=== PATIENT | female | born 1975 | race Caucasian/White ===

== ENCOUNTER 2017-09-18 20:07 | Emergency (ER) | payer MEDICARE, MEDICAID ==
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
--- NOTE | 2017-09-19 08:46 | CT ---
Head CT Technique: Multiple axial sections through the brain were obtained. Intravenous contrast was not utilized. Comparison: No prior intracranial imaging is available. Findings: Soft tissue swelling/hematoma identified within the right posterior scalp. Ventricles along with basal cisterns and sulci over the convexities are within normal limits for the patient's age. No abnormal parenchymal densities are seen. No evidence of intracranial hemorrhage. No midline shift or mass effect is seen. Small retention cyst is noted within the left maxillary sinus measuring 1.0 cm in size which is incidental. No acute calvarial abnormality is seen. Impression: 1. Sinus finding as described above which is felt to be incidental. 2. Soft tissue swelling/hematoma within the right posterior scalp. 3. No acute intracranial abnormality is identified. Diagnostic code #2 I agree with preliminary report issued by [facility] ([facility] preliminary report dictated on 09/18/17, 10:52 PM Central Time)
--- NOTE | 2017-09-19 08:46 | CT ---
CT cervical spine Technique: Multiple axial sections were obtained from above C1 inferiorly to the bottom of T2. Reconstructed sagittal and coronal images were reviewed. Comparison: No previous cervical spine imaging. Findings: Visualized mastoid sinuses and middle ear cavities are clear. Posterior skull base is intact. Vertebral bodies and posterior arches are intact with no fracture being seen. Vertebral body heights and disc spaces are maintained. No bony central or bony neural foraminal stenosis is seen. Minimal degenerative spurring within the uncovertebral joints is seen which is most prominent at C5-C6 on the left side. Impression: 1. Minimal degenerative change. 2. Nothing acute is identified on CT study of the cervical spine. Diagnostic code #2 I agree with preliminary report issued by [facility] ([facility] preliminary report dictated on 09/18/17, 10:48 PMCentral Time)
== END 2017-09-18 22:42 | disposition home or self-care (01) ==
LOC: JD.ED 20:07
DX: S00.03XA Contusion of scalp, initial encounter (principal); E11.22 Type 2 diabetes mellitus with diabetic chronic kidney disease; N18.1 Chronic kidney disease, stage 1; E11.40 Type 2 diabetes mellitus with diabetic neuropathy, unspecified; E78.00 Pure hypercholesterolemia, unspecified; K21.9 Gastro-esophageal reflux disease without esophagitis; F17.210 Nicotine dependence, cigarettes, uncomplicated; Z79.4 Long term (current) use of insulin; Z79.899 Other long term (current) drug therapy; W01.0XXA Fall on same level from slipping, tripping and stumbling without subsequent striking against object, initial encounter; Y92.481 Parking lot as the place of occurrence of the external cause
CPT/HCPCS: 70450; 70450-26; 72125; 72125-26; 99284; 99284-25

== ENCOUNTER 2018-01-01 20:35 | Emergency (ER) | payer MEDICARE, MEDICAID ==
--- NOTE | 2018-01-01 21:09 | EDM.PDOC ---
ED HPI GENERAL MEDICAL PROBLEM - General Chief Complaint: ENT Problem Stated Complaint: DRY SOCKET Time Seen by Provider: 01/01/18 21:09 Source of Information: Reports: Patient History Limitations: Reports: No Limitations - History of Present Illness INITIAL COMMENTS - FREE TEXT/NARRATIVE: Patient is a 42-year-old female with a history of extraction of multiple teeth. She developed dry socketto #30 tooth. She was evaluated by her oral surgeon approximately one week ago and started on another round of antibiotic of unknown name. She has received hydrocodone with ibuprofen. She ran out of this medication a few days ago. Pain is isolated to the #30 tooth. She developed a small knot along the outerborder of the gumline. She has pain from the chin along the mandibular branch of the facial nerve. She has a history of factor V Leiden and is concerned about a blood clot. Patient recently moved here from [facility]. She is supposed to be on xarelto and is not for a multitude of excuses. She sees Dr. Mathur at the [facility] in [place]. Right Tooth/Teeth Pain Score (Numeric/FACES): 6 - Related Data Allergies Allergy/AdvReac Type Severity Reaction Status Date / Time atorvastatin [From Lipitor] Allergy Rash Verified 09/18/17 20:24 pseudoephedrine Allergy Rash Verified 09/18/17 20:23 [From Sudafed] komboglyze Allergy Vomiting Uncoded 09/18/17 20:24 Home Meds: Home Meds Dexlansoprazole [Dexilant] 60 mg PO BID 09/18/17 [History] Insulin Glarg,Human.Rec.Analog [LantUS Solostar] 45 units INJECT BEDTIME [History] Novalog 16 units INJECT TID 09/18/17 [History] Past Medical History Cardiovascular History: Reports: High Cholesterol Respiratory History: Reports: PE Gastrointestinal History: Reports: GERD Other Gastrointestinal History: Cheng esophagus Genitourinary History: Reports: Chronic Renal Insuffiency Neurological History: Reports: Migraines Psychiatric History: Reports: Bipolar Other Psychiatric History: manic depression Endocrine/Metabolic History: Reports: Diabetes, Type II, Obesity/BMI 30+ Hematologic History: Reports: Other (See Below) Other Hematologic History: factor 5 liden - Past Surgical History HEENT Surgical History: Reports: Oral Surgery, Tonsillectomy, Other (See Below) Other HEENT Surgeries/Procedures: 3 teeth removed and 3 teeth repaired GI Surgical History: Reports: Cholecystectomy, Hernia, Abdominal Female Surgical History: Reports: Section, Cervical Cryotherapy, Hysterectomy Musculoskeletal Surgical History: Reports: Shoulder Surgery, Other (See Below) Social & Family History - Tobacco Use Smoking Status *Q: Former Smoker Years of Tobacco use: 28 Packs/Tins Daily: 0.1 Used Tobacco, but Quit: Yes Month/Year Tobacco Last Used: December 19, 2017 - Caffeine Use Caffeine Use: Reports: Coffee - Recreational Drug Use Recreational Drug Use: No Drug Use in Last 12 Months: No Recreational Drug Type: Reports: Cocaine (last 2008) ED ROS ENT - Review of Systems Review Of Systems: ROS reveals no pertinent complaints other than HPI. Constitutional: Denies: Fever, Chills, Decreased Appetite HEENT: Denies: Ear Pain, Sinus Problem, Throat Pain Musculoskeletal: Denies: Neck Pain Skin: Denies: Erythema Neurological: Reports: No Symptoms ED EXAM, ENT - Physical Exam Exam: See Below Exam Limited By: No Limitations General Appearance: Alert, WD/WN, No Apparent Distress Ears: Hearing Grossly Normal Nose: Normal Inspection Mouth/Throat: Normal Inspection, Dental Pain, Other (Dry second noted #30 tooth. With palpation of the lateral aspect at the gumline small knot present. Minimal pain on palpation. No fluctuance. This is localized with no extension.) . No: Drooling, Dry Mucous Membrane, Trismus Head: Normocephalic Neck: Normal Inspection, Supple, Non-Tender, Full Range of Motion. No: Lymphadenopathy (L), Lymphadenopathy (R) Respiratory/Chest: No Respiratory Distress, Lungs Clear Cardiovascular: Normal Peripheral Pulses, Regular Rate, Rhythm Neurological: Alert, Oriented, CN II-XII Intact, Normal Cognition Psychiatric: Normal Affect, Normal Mood Course - Vital Signs Last Recorded V/S: Last Vital Signs Temp 97.2 F 01/01/18 20:44 Pulse 115 H 01/01/18 20:44 Resp 18 01/01/18 20:44 BP 153/98 H 01/01/18 20:44 Pulse Ox 99 01/01/18 20:44 - Re-Assessments/Exams Free Text/Narrative Re-Assessment/Exam: Patient has a dry socket tooth #30 tooth. Appears to be responding well to antibiotics. Patient will be discharged home with no further narcotics. She is in no acute distress. Discharge instructions as documented. Departure - Departure Time of Disposition: 21:36 Disposition: Home, Self-Care 01 Condition: Good Clinical Impression: Dry tooth socket - Discharge Information Instructions: Dental Dry Socket, [id number] Referrals: Josie Mathur MD [Primary Care Provider] - Forms: ED Department Discharge Additional Instructions: Continue taking the antibiotic as prescribed. Utilize Aleve one tablet twice a day for pain may also take Tylenol 650 mg every 6 hours for pain as well. Refrain from chewing on the affected side. Continue to follow the instructions by your oral surgeon. Follow-up with oral surgeon this coming week for reevaluation. Return to the ED if you develop any new or worsening symptoms.
== END 2018-01-01 21:45 | disposition home or self-care (01) ==
LOC: JD.ED 20:35
DX: M27.3 Alveolitis of jaws (principal); E78.00 Pure hypercholesterolemia, unspecified; E11.22 Type 2 diabetes mellitus with diabetic chronic kidney disease; N18.9 Chronic kidney disease, unspecified; Z88.8 Allergy status to other drugs, medicaments and biological substances; Z79.899 Other long term (current) drug therapy; Z79.4 Long term (current) use of insulin; Z87.891 Personal history of nicotine dependence
CPT/HCPCS: 99283

== ENCOUNTER 2018-03-15 05:28 | Emergency (ER) | payer MEDICARE, MEDICAID ==
[2018-03-15] MEDS ORDERED: cefTRIAXone 1 GM in Sodium Chloride 0.9% 100 ML IV ONE (05:51)
--- NOTE | 2018-03-15 05:55 | EDM.PDOC ---
ED HPI GENERAL MEDICAL PROBLEM - General Chief Complaint: Headache Stated Complaint: headache Time Seen by Provider: 03/15/18 05:39 Source of Information: Reports: Patient History Limitations: Reports: No Limitations - History of Present Illness INITIAL COMMENTS - FREE TEXT/NARRATIVE: This is a 42-year-old female. Onset of a headache earlier this evening. He describes it as throbbing and a pounding in the front of her head and face and eyes and top of her head. She says she used to have headaches like this once every month but that she hasn't been having very many in the last few months until this one started. She has been nauseated but no vomiting. He also complains of having some lymph nodes behind her ear and underneath her left axilla that are very painful. She comes to the ER for evaluation. She denies any fever or chills. Head Pain Score (Numeric/FACES): 8 - Related Data Allergies Allergy/AdvReac Type Severity Reaction Status Date / Time atorvastatin [From Lipitor] Allergy Rash Verified 03/15/18 05:38 pseudoephedrine Allergy Rash Verified 03/15/18 05:38 [From Sudafed] komboglyze Allergy Vomiting Uncoded 09/18/17 20:24 Home Meds: Home Meds Dexlansoprazole [Dexilant] 60 mg PO BID 09/18/17 [History] Insulin Glarg,Human.Rec.Analog [LantUS Solostar] 45 units INJECT BEDTIME [History] Cephalexin 500 mg PO TID #21 capsule 03/15/18 [Rx] Insulin Aspart [NovoLOG] 0 units SQ DAILY 03/15/18 [History] Past Medical History Cardiovascular History: Reports: High Cholesterol Respiratory History: Reports: PE Gastrointestinal History: Reports: GERD Other Gastrointestinal History: Cheng esophagus Genitourinary History: Reports: Chronic Renal Insuffiency Neurological History: Reports: Migraines Psychiatric History: Reports: Bipolar Other Psychiatric History: manic depression Endocrine/Metabolic History: Reports: Diabetes, Type II, Obesity/BMI 30+ Hematologic History: Reports: Other (See Below) Other Hematologic History: factor 5 liden - Past Surgical History HEENT Surgical History: Reports: Oral Surgery, Tonsillectomy, Other (See Below) Other HEENT Surgeries/Procedures: 3 teeth removed and 3 teeth repaired GI Surgical History: Reports: Cholecystectomy, Hernia, Abdominal Female Surgical History: Reports: Section, Cervical Cryotherapy, Hysterectomy Musculoskeletal Surgical History: Reports: Shoulder Surgery, Other (See Below) Social & Family History - Tobacco Use Smoking Status *Q: Unknown Ever Smoked - Caffeine Use Caffeine Use: Reports: Coffee ED ROS GENERAL - Review of Systems Review Of Systems: See Below Constitutional: Denies: Fever, Chills HEENT: Reports: No Symptoms Respiratory: Reports: No Symptoms Cardiovascular: Reports: No Symptoms Endocrine: Reports: No Symptoms GI/Abdominal: Reports: No Symptoms : Reports: No Symptoms Musculoskeletal: Reports: No Symptoms Skin: Reports: Other (Left adnexal inflammation and swelling) Neurological: Reports: Headache Psychiatric: Reports: No Symptoms Hematologic/Lymphatic: Reports: No Symptoms - Physical Exam Exam: See Below Exam Limited By: No Limitations General Appearance: Alert, WD/WN, Mild Distress Eye Exam: Bilateral Eye: Normal Inspection Ears: Normal External Exam, Normal Canal, Normal TMs Nose: Normal Inspection Throat/Mouth: Normal Inspection, Normal Lips, Normal Voice, No Airway Compromise Head Exam: Normocephalic, Other (Hospital some mild lymphadenopathy post auricular on the right side) Neck: Supple, Non-Tender Respiratory/Chest: No Respiratory Distress, Lungs Clear, Normal Breath Sounds Cardiovascular: Regular Rate, Rhythm, No Murmur GI/Abdominal: Soft Neuro Exam (Abbreviated): Alert, Oriented Back Exam: Full Range of Motion Extremities: Normal Inspection, Normal Range of Motion, Other (In the left axilla she has a very large lymph node noted swollen and very tender and there is some surrounding erythema in that region the lymph node is probably a good 3 cm in diameter, there is no fluctuance there to open up for an abscess is just very firm) Psychiatric: Normal Affect, Normal Mood Skin Exam: Warm, Dry Course - Vital Signs Last Recorded V/S: Last Vital Signs Temp 98.5 F 03/15/18 05:35 Pulse 85 03/15/18 05:35 Resp 18 03/15/18 05:35 BP 185/112 H 03/15/18 05:35 Pulse Ox 100 03/15/18 05:35 - Orders/Labs/Meds Orders: Active Orders 24 hr Category Date Time Status Sodium Chloride 0.9% [Normal Saline] 1,000 ml Med 03/15/18 06:00 Active IV ASDIRECTED Medication Orders Sodium Chloride (Normal Saline) 1,000 mls @ 1,000 mls/hr IV ASDIRECTED KARIE Last Admin: 03/15/18 06:06 Dose: 1,000 mls/hr Meds: Medications Generic Name Dose Route Start Last Admin Trade Name Aspen PRN Reason Stop Dose Admin Sodium Chloride 1,000 mls @ 1,000 mls/hr 03/15/18 06:00 03/15/18 06:06 Normal Saline IV 1,000 mls/hr ASDIRECTED KARIE Administration Discontinued Medications Generic Name Dose Route Start Last Admin Trade Name Aspen PRN Reason Stop Dose Admin Diphenhydramine HCl 25 mg 03/15/18 06:07 03/15/18 06:14 Benadryl IVPUSH 03/15/18 06:08 25 mg ONETIME ONE Administration Ceftriaxone Sodium 1 gm/ 100 mls @ 200 mls/hr 03/15/18 05:51 03/15/18 05:59 Sodium Chloride IV 03/15/18 06:20 200 mls/hr ONETIME ONE Administration Ketorolac Tromethamine 30 mg 03/15/18 06:07 03/15/18 06:13 Toradol IVPUSH 03/15/18 06:08 30 mg ONETIME ONE Administration Lorazepam 0.5 mg 03/15/18 06:08 03/15/18 06:16 Ativan IVPUSH 03/15/18 06:09 0.5 mg ONETIME ONE Administration Ondansetron HCl 4 mg 03/15/18 06:07 03/15/18 06:13 Zofran IVPUSH 03/15/18 06:08 4 mg ONETIME ONE Administration - Re-Assessments/Exams Free Text/Narrative Re-Assessment/Exam: 03/15/18 07:04 The liter of fluids and the medications the patient's headache essentially resolved. I did give her a gram of Rocephin IV for her severe lymphadenitis of her left axilla. She is going to follow-up with her family doctor this week for recheck and have them recheck her left axilla as well. Departure - Departure Time of Disposition: 07:05 Disposition: Home, Self-Care 01 Condition: Fair Clinical Impression: Axillary lymphadenitis Headache Qualifiers: Headache type: other headache syndrome Qualified Code(s): G44.89 - Other headache syndrome - Discharge Information Prescriptions: Cephalexin 500 mg PO TID #21 capsule Referrals: Josie Mathur MD [Primary Care Provider] - Forms: ED Department Discharge Additional Instructions: Use warm compresses to the axilla 2-3 times a day, start taking your antibiotics tomorrow morning but get them today the IV antibiotic she got in the ER this morning will last for 24 hours, rest and sleep as much as possible so you headache doesn't come back and drink lots of water, follow-up with your physician as scheduled this week and have them recheck your left axilla, return to the ER if needed - My Orders Last 24 Hours: My Active Orders 03/15/18 06:00 Sodium Chloride 0.9% [Normal Saline] 1,000 ml IV ASDIRECTED - Assessment/Plan Last 24 Hours: My Active Orders 03/15/18 06:00 Sodium Chloride 0.9% [Normal Saline] 1,000 ml IV ASDIRECTED
[2018-03-15] MEDS ORDERED: Sodium Chloride 0.9% 1,000 ML IV SCH (06:00)
[2018-03-15] MEDS ORDERED: diphenhydrAMINE 50 MG/ML SDV IVPUSH ONE (06:07)
[2018-03-15] MEDS ORDERED: Ondansetron 4 MG/2 ML SDV IVPUSH ONE (06:07)
[2018-03-15] MEDS ORDERED: Ketorolac 30 MG/ML SDV IVPUSH ONE (06:07)
[2018-03-15] MEDS ORDERED: LORazepam 2 MG/ML SDV IVPUSH ONE (06:08)
== END 2018-03-15 07:23 | disposition home or self-care (01) ==
LOC: JD.ED 05:28
DX: G44.89 Other headache syndrome (principal); I88.9 Nonspecific lymphadenitis, unspecified; N18.9 Chronic kidney disease, unspecified; E11.22 Type 2 diabetes mellitus with diabetic chronic kidney disease; E66.9 Obesity, unspecified; Z88.8 Allergy status to other drugs, medicaments and biological substances; Z79.4 Long term (current) use of insulin
CPT/HCPCS: 96361; 96374; 96375; 99284; J0696; J1200; J1885; J2060; J2405; J7030; J7040

== ENCOUNTER 2018-05-05 19:56 | Emergency (ER) | payer MEDICARE, MEDICAID ==
--- NOTE | 2018-05-05 22:58 | EDM.PDOC ---
ED HPI GENERAL MEDICAL PROBLEM - General Chief Complaint: General Stated Complaint: MERSA INFECTION Time Seen by Provider: 05/05/18 20:21 Source of Information: Reports: Patient, Family (Daughter) History Limitations: Reports: No Limitations - History of Present Illness INITIAL COMMENTS - FREE TEXT/NARRATIVE: The patient states that she has had a fever on and off since 05/02/2018 , with a Tmax of 103 on 05/03/2018. She also complains of a painful lesion inside her left nostril for the past week, getting worse, and a painful lump in her right axilla for the past 2 days. The patient states that she has a history of MRSA. When asked about this, she states that she acquired an intra- abdominal MRSA infection when she had a hysterectomy. She states that she has had various skin infections since then, that she has presumed were due to MRSA, but she acknowledges that no cultures were taken. The patient presumes that any skin infection must be due to MRSA. The patient has a history of diabetes, and a continuous glucose monitor was recently placed. She states that her blood glucoses have been in the range of 106 to 300. The patient's PCP is Dr. Mathur. 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 nose Pain Score (Numeric/FACES): 7 - Related Data Allergies Allergy/AdvReac Type Severity Reaction Status Date / Time atorvastatin [From Lipitor] Allergy Rash Verified 05/05/18 20:18 pseudoephedrine Allergy Rash Verified 05/05/18 20:18 [From Sudafed] komboglyze Allergy Vomiting Uncoded 05/05/18 20:18 Home Meds: Home Meds Dexlansoprazole [Dexilant] 60 mg PO BID 09/18/17 [History] Insulin Glarg,Human.Rec.Analog [LantUS Solostar] 45 units INJECT BEDTIME [History] Insulin Aspart [NovoLOG] 0 units SQ DAILY 03/15/18 [History] Mupirocin Oint [Bactroban Oint] 1 applic TOP BID #1 tube 05/05/18 [Rx] Past Medical History Cardiovascular History: Reports: High Cholesterol (untreated) Respiratory History: Reports: PE (not on an anticoagulant) Gastrointestinal History: Reports: GERD (with Cheng esophagus) Genitourinary History: Reports: Chronic Renal Insuffiency (2 diabetes) Psychiatric History: Reports: Bipolar Other Psychiatric History: manic depression Endocrine/Metabolic History: Reports: Diabetes, Type II, Obesity/BMI 30+ Hematologic History: Reports: Bleeding Disorder (Factor V Leiden deficiency) - Infectious Disease History Infectious Disease History: Reports: Chicken Pox, MRSA - Past Surgical History HEENT Surgical History: Reports: Oral Surgery (Dental surgery), Tonsillectomy GI Surgical History: Reports: Cholecystectomy, Hernia Repair/Other (umbilical herniorrhaphy x 2) Female Surgical History: Reports: Section (x 2), Cervical Cryotherapy, Hysterectomy Musculoskeletal Surgical History: Reports: Shoulder Surgery (right rotator cuff repair, arthroscopic), Other (See Below) (Right Achilles tendon repair) Social & Family History - Family History Family Medical History: Noncontributory - Tobacco Use Smoking Status *Q: Current Every Day Smoker Years of Tobacco use: 28 Packs/Tins Daily: 0.5 Packs/Tins Daily Comment: Down from 2 ppd - Caffeine Use Caffeine Use: Reports: Coffee - Alcohol Use Alcohol Use History: Yes Alcohol Use Frequency: Rarely - Recreational Drug Use Recreational Drug Use: Yes Drug Use in Last 12 Months: No Recreational Drug Type: Reports: Cocaine (none 2008) - Living Situation & Occupation Living situation: Reports: Single, with Family (Daughter) 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 ED EXAM, GENERAL - Physical Exam Exam: See Below Exam Limited By: No Limitations General Appearance: Alert, WD/WN, No Apparent Distress Eye Exam: Bilateral Eye: EOMI, Normal Inspection Ears: Normal External Exam, Normal Canal, Hearing Grossly Normal, Normal TMs Nose: No Blood, Other (Small folliculitis noted in the left nostril) Throat/Mouth: Normal Inspection, Normal Lips, Normal Teeth, Normal Gums, Normal Oropharynx, Normal Voice, No Airway Compromise Head: Atraumatic, Normocephalic Extremities: Other (Small area of folliculitis noted in the right axilla. No associated cellulitis. No axillary lymphadenopathy.) Course - Vital Signs Last Recorded V/S: Last Vital Signs Temp 36.6 C 05/05/18 20:11 Pulse 93 05/05/18 20:11 Resp 18 05/05/18 20:11 BP 150/99 H 05/05/18 20:11 Pulse Ox 100 05/05/18 20:11 - Orders/Labs/Meds Orders: Active Orders 24 hr Category Date Time Status METH-RESIST S.AUR,MRSA BY PCR [MOLEC] Stat Lab 05/05/18 21:10 Ordered Labs: Laboratory Tests 05/05/18 Range/Units 21:10 MRSA (PCR) Negative Meds: Medications Discontinued Medications Generic Name Dose Route Start Last Admin Trade Name Aspen PRN Reason Stop Dose Admin Mupirocin 1 gm 05/05/18 23:00 05/05/18 23:10 Bactroban Oint TOP 05/05/18 23:01 1 gm ONETIME STA Administration - Re-Assessments/Exams Free Text/Narrative Re-Assessment/Exam: 05/05/18 22:51 The patient's MRSA screen by PCR has returned as negative. Clinically, the patient has folliculitis of both her left nostril and her right axilla. I am going to recommend topical mupirocin to both areas, and recommend that she avoid shaving her right axilla until resolution. Departure - Departure Time of Disposition: 22:58 Disposition: Home, Self-Care 01 Condition: Good Clinical Impression: Folliculitis - Discharge Information *PRESCRIPTION DRUG MONITORING PROGRAM REVIEWED*: Not Applicable *COPY OF PRESCRIPTION DRUG MONITORING REPORT IN PATIENT YARELIS: Not Applicable Prescriptions: Mupirocin Oint [Bactroban Oint] 1 applic TOP BID #1 tube Instructions: Folliculitis Referrals: oJsie Mathur MD [Primary Care Provider] - Forms: ED Department Discharge Additional Instructions: You were seen in the emergency room for recurrent fevers, and an infection in your left nostril and right arm. Workup in the ER included a MRSA screen, which returned negative. Based on your history and physical examination, you're suffering from folliculitis in your left nostril and right armpit. You have been started on the topical antibiotic Bactroban (mupirocen). A prescription for Bactroban has been sent to the [facility], [address] [place]. Apply a thin smear of Bactroban to the inside of your left nostril and to your right armpit, twice a day, until resolution of your symptoms. In addition, we recommend that you do not shave your right armpit until resolution of your symptoms. Follow-up with your PCP, Dr. Josie Mathur, as needed. If any other problems, please do not hesitate to return to the ER. - My Orders Last 24 Hours: My Active Orders 05/05/18 21:10 METH-RESIST S.AUR,MRSA BY PCR [MOLEC] Stat - Assessment/Plan Last 24 Hours: My Active Orders 05/05/18 21:10 METH-RESIST S.AUR,MRSA BY PCR [MOLEC] Stat
[2018-05-05] MEDS ORDERED: Mupirocin Oint 22 GM Tube TOP STA (23:00)
== END 2018-05-05 23:26 | disposition home or self-care (01) ==
LOC: JD.ED 19:56
DX: L73.9 Follicular disorder, unspecified (principal); E11.22 Type 2 diabetes mellitus with diabetic chronic kidney disease; N18.9 Chronic kidney disease, unspecified; F17.210 Nicotine dependence, cigarettes, uncomplicated; Z88.8 Allergy status to other drugs, medicaments and biological substances; Z79.4 Long term (current) use of insulin
CPT/HCPCS: 87641; 99283; A9270

== ENCOUNTER 2018-06-15 08:40 | Emergency (ER) | payer MEDICARE, MEDICAID ==
[2018-06-15] MEDS ORDERED: Sodium Chloride 0.9% 10 ML Syringe FLUSH PRN (09:16)
[2018-06-15] MEDS ORDERED: Sodium Chloride 0.9% 1,000 ML IV STA (09:16)
[2018-06-15] MEDS ORDERED: Ondansetron 4 MG/2 ML SDV IVPUSH ONE (09:16)
--- NOTE | 2018-06-15 11:45 | EDM.PDOC ---
ED HPI GENERAL MEDICAL PROBLEM - General Chief Complaint: Gastrointestinal Problem Stated Complaint: NAUSEA/VOMITING/POSS EYE INFECTION Time Seen by Provider: 06/15/18 08:54 Source of Information: Reports: Patient History Limitations: Reports: No Limitations - History of Present Illness INITIAL COMMENTS - FREE TEXT/NARRATIVE: The patient presents with nausea and diarrhea. This stared over 2 weeks ago. She was in [place] for her grandmother's and after that she did get the diarrhea. She did not eat any bad food as far as she knows. She was not around anyone who was sick like this. She was [place] when she was in [place]. She has no fever, chills, cough, chest pain, shortness of breath, or dysuria. She will get cramping before the diarrhea. About every time she eats she will get some diarrhea later. She also has red eyes with drainage and matting. Onset: Gradual Duration: Week(s): (2) Location: Reports: Abdomen Quality: Reports: Other (Cramping) Severity: Mild Improves with: Reports: None Worsens with: Reports: None Associated Symptoms: Reports: No Other Symptoms - Related Data Allergies Allergy/AdvReac Type Severity Reaction Status Date / Time atorvastatin [From Lipitor] Allergy Rash Verified 06/15/18 08:51 pseudoephedrine Allergy Rash Verified 06/15/18 08:51 [From Sudafed] komboglyze Allergy Vomiting Uncoded 06/15/18 08:51 Home Meds: Home Meds Dexlansoprazole [Dexilant] 60 mg PO BID 09/18/17 [History] Insulin Glarg,Human.Rec.Analog [LantUS Solostar] 25 units INJECT BEDTIME [History] Insulin Aspart [NovoLOG] 0 units SQ TID 03/15/18 [History] Ciprofloxacin [Ciprofloxacin 0.3% Ophth Soln] 1 drop EYEBOTH Q4H #10 ml [Rx] Ondansetron [Zofran ODT] 4 mg PO Q6H PRN #20 tab.dis 06/15/18 [Rx] metroNIDAZOLE [Flagyl] 500 mg PO Q8H #15 tab 06/15/18 [Rx] Past Medical History Cardiovascular History: Reports: High Cholesterol Respiratory History: Reports: PE Gastrointestinal History: Reports: GERD Other Gastrointestinal History: Cheng esophagus Genitourinary History: Reports: Chronic Renal Insuffiency Neurological History: Reports: Migraines Psychiatric History: Reports: Bipolar Other Psychiatric History: manic depression Endocrine/Metabolic History: Reports: Diabetes, Type II, Obesity/BMI 30+ Hematologic History: Reports: Bleeding Disorder Other Hematologic History: factor 5 liden - Infectious Disease History Infectious Disease History: Reports: Chicken Pox, MRSA - Past Surgical History HEENT Surgical History: Reports: Oral Surgery, Tonsillectomy GI Surgical History: Reports: Cholecystectomy, Hernia Repair/Other Female Surgical History: Reports: Section, Cervical Cryotherapy, Hysterectomy Musculoskeletal Surgical History: Reports: Shoulder Surgery, Other (See Below) Social & Family History - Family History Family Medical History: Noncontributory - Tobacco Use Smoking Status *Q: Never Smoker - Caffeine Use Caffeine Use: Reports: Coffee - Recreational Drug Use Recreational Drug Use: No - Living Situation & Occupation Living situation: Reports: Single, with Family (Daughter) 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 Denies: Vomiting : Reports: No Symptoms ED EXAM, GI/ABD - Physical Exam Exam: See Below Exam Limited By: No Limitations General Appearance: Alert, No Apparent Distress Eyes: Bilateral: Erythema (Mild with mild drainage) Ears: Normal External Exam Nose: Normal Inspection Head: Atraumatic, Normocephalic Neck: Normal Inspection Respiratory/Chest: No Respiratory Distress, Lungs Clear, Normal Breath Sounds Cardiovascular: Regular Rate, Rhythm, No Edema, No Murmur GI/Abdominal Exam: Soft, Non-Tender, No Organomegaly, No Mass Back Exam: Normal Inspection Course - Vital Signs Last Recorded V/S: Last Vital Signs Temp 97.7 F 06/15/18 08:48 Pulse 89 06/15/18 08:48 Resp 16 06/15/18 08:48 BP 156/97 H 06/15/18 08:48 Pulse Ox 100 06/15/18 08:48 - Orders/Labs/Meds Orders: Active Orders 24 hr Category Date Time Status Peripheral IV Care [RC] . DIRECTED Care 06/15/18 09:17 Active Sodium Chloride 0.9% [Saline Flush] Med 06/15/18 09:16 Active 10 ml FLUSH ASDIRECTED PRN ED Antiemetic Medication Reflex [OM.PC] Stat Oth 06/15/18 09:17 Ordered Peripheral IV Insertion Adult [OM.PC] Stat Ot 06/15/18 09:16 Ordered Medication Orders Sodium Chloride (Saline Flush) 10 ml FLUSH ASDIRECTED PRN PRN Reason: Keep Vein Open Last Admin: 06/15/18 09:31 Dose: 10 ml Labs: Laboratory Tests 06/15/18 06/15/18 Range/Units 09:25 09:25 WBC 8.94 (3.98-10.04) K/mm3 RBC 4.83 (3.98-5.22) M/mm3 Hgb 13.1 (11.2-15.7) gm/L Hct 38.2 (34.1-44.9) % MCV 79.1 L (79.4-94.8) fl MCH 27.1 (25.6-32.2) pg MCHC 34.3 (32.2-35.5) g/dl RDW Std Deviation 39.4 (36.4-46.3) fL Plt Count 274 (182-369) K/mm3 MPV 9.9 (9.4-12.3) fl Neut % (Auto) 56.4 (34.0-71.1) % Lymph % (Auto) 36.4 (19.3-51.7) % Benzie % (Auto) 4.4 L (4.7-12.5) % Eos % (Auto) 2.1 (0.7-5.8) Baso % (Auto) 0.6 (0.1-1.2) % Neut # (Auto) 5.05 (1.56-6.13) K/mm3 Lymph # (Auto) 3.25 (1.18-3.74) K/mm3 Benzie # (Auto) 0.39 H (0.24-0.36) K/mm3 Eos # (Auto) 0.19 (0.04-0.36) K/mm3 Baso # (Auto) 0.05 (0.01-0.08) K/mm3 Sodium 138 (136-145) mEq/L Potassium 4.0 (3.5-5.1) mEq/L Chloride 105 (98-107) mEq/L Carbon Dioxide 23 (21-32) mEq/L Anion Gap 14.0 (5-15) BUN 12 (7-18) mg/dL Creatinine 0.8 (0.55-1.02) mg/dL Est Cr Clr Drug Dosing 94.76 mL/min Estimated GFR (MDRD) > 60 (>60) mL/min BUN/Creatinine Ratio 15.0 (14-18) Glucose 217 H (74-106) mg/dL Calcium 8.4 L (8.5-10.1) mg/dL Total Bilirubin 0.4 (0.2-1.0) mg/dL AST 17 (15-37) U/L ALT 14 (14-59) U/L Alkaline Phosphatase 108 (46-116) U/L Total Protein 6.6 (6.4-8.2) g/dl Albumin 3.0 L (3.4-5.0) g/dl Globulin 3.6 gm/dL Albumin/Globulin Ratio 0.8 L (1-2) Lipase 127 (73-393) U/L Meds: Medications Generic Name Dose Route Start Last Admin Trade Name Freq PRN Reason Stop Dose Admin Sodium Chloride 10 ml 06/15/18 09:16 06/15/18 09:31 Saline Flush FLUSH 10 ml ASDIRECTED PRN Administration Keep Vein Open Discontinued Medications Generic Name Dose Route Start Last Admin Trade Name Freq PRN Reason Stop Dose Admin Sodium Chloride 1,000 mls @ 1,000 mls/hr 06/15/18 09:16 06/15/18 09:30 Normal Saline IV 06/15/18 10:15 1,000 mls/hr .BOLUS STA Administration Ondansetron HCl 4 mg 06/15/18 09:16 06/15/18 09:31 Zofran IVPUSH 06/15/18 09:17 4 mg ONETIME ONE Administration - Re-Assessments/Exams Free Text/Narrative Re-Assessment/Exam: 06/15/18 11:53 I ordered an IV NS 1L bolus, zofran 4mg IV, labs and UA. Her CBC looks good. Her glucose was 217. Her lipase was normal. She could not urinate or have a bowel movement. I will send specimen cups home. I will also get her on some flagyl, zofran and cipro for the conjunctivitis she is having. Departure - Departure Time of Disposition: 11:40 Disposition: Home, Self-Care 01 Condition: Good Clinical Impression: Nausea Diarrhea Qualifiers: Diarrhea type: infectious Qualified Code(s): A09 - Infectious gastroenteritis and colitis, unspecified Conjunctivitis Qualifiers: Conjunctivitis type: acute Acute conjunctivitis type: bacterial Laterality: bilateral Qualified Code(s): H10.33 - Unspecified acute conjunctivitis, bilateral - Discharge Information *PRESCRIPTION DRUG MONITORING PROGRAM REVIEWED*: No *COPY OF PRESCRIPTION DRUG MONITORING REPORT IN PATIENT YARELIS: No Prescriptions: Ciprofloxacin [Ciprofloxacin 0.3% Ophth Soln] 1 drop EYEBOTH Q4H #10 ml metroNIDAZOLE [Flagyl] 500 mg PO Q8H #15 tab Ondansetron [Zofran ODT] 4 mg PO Q6H PRN #20 tab.dis PRN Reason: Nausea\vomiting Instructions: Nausea, Adult, Diarrhea, Adult, Bacterial Conjunctivitis, Easy-to -Read Referrals: Josie Mathur MD [Primary Care Provider] - 1 Week Forms: ED Department Discharge Additional Instructions: Take the medication as prescribed. Drink plenty of fluids. Follow up with your doctor in 1 week. Please bring back a stool sample so we can test it. - My Orders Last 24 Hours: My Active Orders 06/15/18 09:16 Sodium Chloride 0.9% [Saline Flush] 10 ml FLUSH ASDIRECTED PRN Peripheral IV Insertion Adult [OM.PC] Stat 06/15/18 09:17 Peripheral IV Care [RC] . DIRECTED ED Antiemetic Medication Reflex [OM.PC] Stat - Assessment/Plan Last 24 Hours: My Active Orders 06/15/18 09:16 Sodium Chloride 0.9% [Saline Flush] 10 ml FLUSH ASDIRECTED PRN Peripheral IV Insertion Adult [OM.PC] Stat 06/15/18 09:17 Peripheral IV Care [RC] . DIRECTED ED Antiemetic Medication Reflex [OM.PC] Stat
== END 2018-06-15 11:50 | disposition home or self-care (01) ==
LOC: JD.ED 08:40
DX: A09 Infectious gastroenteritis and colitis, unspecified (principal); H10.33 Unspecified acute conjunctivitis, bilateral; E11.22 Type 2 diabetes mellitus with diabetic chronic kidney disease; N18.9 Chronic kidney disease, unspecified; K21.9 Gastro-esophageal reflux disease without esophagitis; E78.00 Pure hypercholesterolemia, unspecified; Z79.4 Long term (current) use of insulin; Z79.899 Other long term (current) drug therapy; Z88.8 Allergy status to other drugs, medicaments and biological substances
CPT/HCPCS: 36415; 80053; 83690; 85025; 96361; 96374; 99284; J2405; J7040; J7050

== ENCOUNTER 2018-06-26 17:48 | Emergency (ER) | payer MEDICARE, MEDICAID ==
[2018-06-26] MEDS ORDERED: Sodium Chloride 0.9% 10 ML Syringe FLUSH PRN (18:32)
--- NOTE | 2018-06-26 18:32 | EDM.PDOC ---
ED HPI GENERAL MEDICAL PROBLEM - General Chief Complaint: Chest Pain Stated Complaint: CHEST PAIN Time Seen by Provider: 06/26/18 18:02 Source of Information: Reports: Patient History Limitations: Reports: No Limitations - History of Present Illness INITIAL COMMENTS - FREE TEXT/NARRATIVE: 43-year-old female presents for evaluation and treatment of right-sided chest pain. Patient reports pain on the right side of her chest and into her right mid back. Reports a started about 2-3 hours prior to arrival. States it started suddenly. Patient denies any shortness of breath, lightheadedness, dizziness, syncope, fevers or chills. She states that she appreciated that her bilateral arms felt cold and numb. She describes the pain as a stabbing pain. No treatments prior to arrival in the ER. Patient has a history of PE blood clots. Last blood clot was about 3 years ago. She is on Xarelto, 10 mg daily for PE prophylaxis. She has been taking this as prescribed. States she has gotten a blood clot on xarelto before. She reports cramps in her legs. No swelling to her legs. 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 Reports about [address] drive while 14-15 hours to [place]. Patient is a type I diabetic. Past surgical history includes a lap jayson. Right Chest Pain Score (Numeric/FACES): 6 - Related Data Allergies Allergy/AdvReac Type Severity Reaction Status Date / Time atorvastatin [From Lipitor] Allergy Rash Verified 06/15/18 08:51 pseudoephedrine Allergy Rash Verified 06/15/18 08:51 [From Sudafed] komboglyze Allergy Vomiting Uncoded 06/15/18 08:51 Home Meds: Home Meds Dexlansoprazole [Dexilant] 60 mg PO BID 09/18/17 [History] Insulin Glarg,Human.Rec.Analog [LantUS Solostar] 20 units INJECT BID 09/18/17 [ History] Insulin Aspart [NovoLOG] 0 units SQ TID 03/15/18 [History] Cephalexin [Keflex] 500 mg PO BID #14 capsule 06/26/18 [Rx] Past Medical History Cardiovascular History: Reports: High Cholesterol Respiratory History: Reports: PE Gastrointestinal History: Reports: GERD Other Gastrointestinal History: Cheng esophagus Genitourinary History: Reports: Chronic Renal Insuffiency Neurological History: Reports: Migraines Psychiatric History: Reports: Bipolar Other Psychiatric History: manic depression Endocrine/Metabolic History: Reports: Diabetes, Type II, Obesity/BMI 30+ Hematologic History: Reports: Bleeding Disorder Other Hematologic History: factor 5 liden - Infectious Disease History Infectious Disease History: Reports: Chicken Pox, MRSA - Past Surgical History HEENT Surgical History: Reports: Oral Surgery, Tonsillectomy GI Surgical History: Reports: Cholecystectomy, Hernia Repair/Other Female Surgical History: Reports: Section, Cervical Cryotherapy, Hysterectomy Musculoskeletal Surgical History: Reports: Shoulder Surgery, Other (See Below) Social & Family History - Family History Family Medical History: Noncontributory - Tobacco Use Smoking Status *Q: Current Every Day Smoker Years of Tobacco use: 20 Packs/Tins Daily: 0.2 - Caffeine Use Caffeine Use: Reports: Coffee, Tea - Recreational Drug Use Recreational Drug Use: No - Living Situation & Occupation Living situation: Reports: Single, with Family (Daughter) 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 Denies: Dysuria Neurological: Reports: Numbness (bilateral arms) ED EXAM, GENERAL - Physical Exam Exam: See Below Exam Limited By: No Limitations General Appearance: Alert, WD/WN, No Apparent Distress, Obese Eye Exam: Bilateral Eye: Normal Inspection Ears: Normal External Exam Throat/Mouth: Normal Inspection, Normal Oropharynx, Normal Voice, No Airway Compromise Respiratory/Chest: No Respiratory Distress, Lungs Clear, Normal Breath Sounds, Other (identifies pain to the right lower anterior chest/right upper abdomen) Cardiovascular: Normal Peripheral Pulses, Regular Rate, Rhythm, No Murmur GI/Abdominal: Normal Bowel Sounds, Soft, Non-Tender, Other (negative murphys sign) Back Exam: Normal Inspection, CVA Tenderness (R). No: CVA Tenderness (L) Neurological: Alert, Oriented, Normal Cognition Psychiatric: Normal Affect, Normal Mood Skin Exam: Warm, Dry, Normal Color EKG INTERPRETATION EKG Date: 06/26/18 Time: 18:55 Rhythm: NSR Rate (Beats/Min): 90 [place]: Normal P-Wave: Present QRS: Normal ST-T: Normal QT: Normal EKG Interpretation Comments: NSR at [address] segment changes. Reviewed by myself and Dr. Zaidi. Course - Vital Signs Last Recorded V/S: Last Vital Signs Temp 97.9 F 06/26/18 17:56 Pulse 91 06/26/18 17:56 Resp 20 06/26/18 17:56 BP 188/99 H 06/26/18 17:56 Pulse Ox 98 06/26/18 17:56 - Orders/Labs/Meds Labs: Laboratory Tests 06/26/18 06/26/18 06/26/18 Range/Units 18:50 18:50 18:50 WBC 9.29 (3.98-10.04) K/mm3 RBC 4.88 (3.98-5.22) M/mm3 Hgb 13.0 (11.2-15.7) gm/L Hct 39.3 (34.1-44.9) % MCV 80.5 (79.4-94.8) fl MCH 26.6 (25.6-32.2) pg MCHC 33.1 (32.2-35.5) g/dl RDW Std Deviation 40.9 (36.4-46.3) fL Plt Count 295 (182-369) K/mm3 MPV 10.3 (9.4-12.3) fl Neut % (Auto) 50.9 (34.0-71.1) % Lymph % (Auto) 42.1 (19.3-51.7) % [place] % (Auto) 4.8 (4.7-12.5) % Eos % (Auto) 1.6 (0.7-5.8) Baso % (Auto) 0.5 (0.1-1.2) % Neut # (Auto) 4.72 (1.56-6.13) K/mm3 Lymph # (Auto) 3.91 H (1.18-3.74) K/mm3 [place] # (Auto) 0.45 H (0.24-0.36) K/mm3 Eos # (Auto) 0.15 (0.04-0.36) K/mm3 Baso # (Auto) 0.05 (0.01-0.08) K/mm3 D-Dimer, Quantitative 0.27 (0.19-0.50) mg/L Sodium 137 (136-145) mEq/L Potassium 4.0 (3.5-5.1) mEq/L Chloride 104 (98-107) mEq/L Carbon Dioxide 24 (21-32) mEq/L Anion Gap 13.0 (5-15) BUN 15 (7-18) mg/dL Creatinine 1.1 H (0.55-1.02) mg/dL Est Cr Clr Drug Dosing 68.92 mL/min Estimated GFR (MDRD) 54 (>60) mL/min BUN/Creatinine Ratio 13.6 L (14-18) Glucose 318 H (74-106) mg/dL Calcium 8.6 (8.5-10.1) mg/dL Magnesium 1.7 L (1.8-2.4) mg/dl Total Bilirubin 0.2 (0.2-1.0) mg/dL AST 12 L (15-37) U/L ALT 12 L (14-59) U/L Alkaline Phosphatase 108 (46-116) U/L Troponin I (0.00-0.056) ng/mL C-Reactive Protein (<1.0) mg/dL Total Protein 6.9 (6.4-8.2) g/dl Albumin 3.2 L (3.4-5.0) g/dl Globulin 3.7 gm/dL Albumin/Globulin Ratio 0.9 L (1-2) Lipase (73-393) U/L TSH 3rd Generation (0.358-3.74) uIU/mL Urine Color (Yellow) Urine Appearance (Clear) Urine pH (5.0-8.0) Ur Specific [place] (1.005-1.030) Urine Protein (Negative) Urine Glucose (UA) (Negative) Urine Ketones (Negative) Urine Occult Blood (Negative) Urine Nitrite (Negative) Urine Bilirubin (Negative) Urine Urobilinogen (0.2-1.0) Ur Leukocyte Esterase (Negative) Urine RBC (0-5) /hpf Urine WBC (0-5) /hpf Ur Epithelial Cells (0-5) /hpf Urine Bacteria (FEW) /hpf Urine Mucus (FEW) /hpf 06/26/18 06/26/18 06/26/18 Range/Units 18:50 18:50 18:50 WBC (3.98-10.04) K/mm3 RBC (3.98-5.22) M/mm3 Hgb (11.2-15.7) gm/L Hct (34.1-44.9) % MCV (79.4-94.8) fl MCH (25.6-32.2) pg MCHC (32.2-35.5) g/dl RDW Std Deviation (36.4-46.3) fL Plt Count (182-369) K/mm3 MPV (9.4-12.3) fl Neut % (Auto) (34.0-71.1) % Lymph % (Auto) (19.3-51.7) % [place] % (Auto) (4.7-12.5) % Eos % (Auto) (0.7-5.8) Baso % (Auto) (0.1-1.2) % Neut # (Auto) (1.56-6.13) K/mm3 Lymph # (Auto) (1.18-3.74) K/mm3 [place] # (Auto) (0.24-0.36) K/mm3 Eos # (Auto) (0.04-0.36) K/mm3 Baso # (Auto) (0.01-0.08) K/mm3 D-Dimer, Quantitative (0.19-0.50) mg/L Sodium (136-145) mEq/L Potassium (3.5-5.1) mEq/L Chloride (98-107) mEq/L Carbon Dioxide (21-32) mEq/L Anion Gap (5-15) BUN (7-18) mg/dL Creatinine (0.55-1.02) mg/dL Est Cr Clr Drug Dosing mL/min Estimated GFR (MDRD) (>60) mL/min BUN/Creatinine Ratio (14-18) Glucose (74-106) mg/dL Calcium (8.5-10.1) mg/dL Magnesium (1.8-2.4) mg/dl Total Bilirubin (0.2-1.0) mg/dL AST (15-37) U/L ALT (14-59) U/L Alkaline Phosphatase (46-116) U/L Troponin I < 0.017 (0.00-0.056) ng/mL C-Reactive Protein 2.0 H* (<1.0) mg/dL Total Protein (6.4-8.2) g/dl Albumin (3.4-5.0) g/dl Globulin gm/dL Albumin/Globulin Ratio (1-2) Lipase 165 (73-393) U/L TSH 3rd Generation 1.771 (0.358-3.74) uIU/mL Urine Color (Yellow) Urine Appearance (Clear) Urine pH (5.0-8.0) Ur Specific [place] (1.005-1.030) Urine Protein (Negative) Urine Glucose (UA) (Negative) Urine Ketones (Negative) Urine Occult Blood (Negative) Urine Nitrite (Negative) Urine Bilirubin (Negative) Urine Urobilinogen (0.2-1.0) Ur Leukocyte Esterase (Negative) Urine RBC (0-5) /hpf Urine WBC (0-5) /hpf Ur Epithelial Cells (0-5) /hpf Urine Bacteria (FEW) /hpf Urine Mucus (FEW) /hpf 06/26/18 Range/Units 19:55 WBC (3.98-10.04) K/mm3 RBC (3.98-5.22) M/mm3 Hgb (11.2-15.7) gm/L Hct (34.1-44.9) % MCV (79.4-94.8) fl MCH (25.6-32.2) pg MCHC (32.2-35.5) g/dl RDW Std Deviation (36.4-46.3) fL Plt Count (182-369) K/mm3 MPV (9.4-12.3) fl Neut % (Auto) (34.0-71.1) % Lymph % (Auto) (19.3-51.7) % [place] % (Auto) (4.7-12.5) % Eos % (Auto) (0.7-5.8) Baso % (Auto) (0.1-1.2) % Neut # (Auto) (1.56-6.13) K/mm3 Lymph # (Auto) (1.18-3.74) K/mm3 [place] # (Auto) (0.24-0.36) K/mm3 Eos # (Auto) (0.04-0.36) K/mm3 Baso # (Auto) (0.01-0.08) K/mm3 D-Dimer, Quantitative (0.19-0.50) mg/L Sodium (136-145) mEq/L Potassium (3.5-5.1) mEq/L Chloride (98-107) mEq/L Carbon Dioxide (21-32) mEq/L Anion Gap (5-15) BUN (7-18) mg/dL Creatinine (0.55-1.02) mg/dL Est Cr Clr Drug Dosing mL/min Estimated GFR (MDRD) (>60) mL/min BUN/Creatinine Ratio (14-18) Glucose (74-106) mg/dL Calcium (8.5-10.1) mg/dL Magnesium (1.8-2.4) mg/dl Total Bilirubin (0.2-1.0) mg/dL AST (15-37) U/L ALT (14-59) U/L Alkaline Phosphatase (46-116) U/L Troponin I (0.00-0.056) ng/mL C-Reactive Protein (<1.0) mg/dL Total Protein (6.4-8.2) g/dl Albumin (3.4-5.0) g/dl Globulin gm/dL Albumin/Globulin Ratio (1-2) Lipase (73-393) U/L TSH 3rd Generation (0.358-3.74) uIU/mL Urine Color Light yellow (Yellow) Urine Appearance Clear (Clear) Urine pH 6.0 (5.0-8.0) Ur Specific [place] 1.025 (1.005-1.030) Urine Protein Negative (Negative) Urine Glucose (UA) 2+ H (Negative) Urine Ketones Negative (Negative) Urine Occult Blood Negative (Negative) Urine Nitrite Negative (Negative) Urine Bilirubin Negative (Negative) Urine Urobilinogen 0.2 (0.2-1.0) Ur Leukocyte Esterase Negative (Negative) Urine RBC 0-5 (0-5) /hpf Urine WBC 0-5 (0-5) /hpf Ur Epithelial Cells 0-5 (0-5) /hpf Urine Bacteria Moderate H (FEW) /hpf Urine Mucus Few (FEW) /hpf Meds: Medications Discontinued Medications Generic Name Dose Route Start Last Admin Trade Name Freq PRN Reason Stop Dose Admin Ketorolac Tromethamine 60 mg 06/26/18 20:52 06/26/18 20:58 Toradol IM 06/26/18 20:53 60 mg ONETIME ONE Administration Sodium Chloride 10 ml 06/26/18 18:32 Saline Flush FLUSH ASDIRECTED PRN Keep Vein Open - Radiology Interpretation Free Text/Narrative:: chest xray shows no acute intrathoracic process - Re-Assessments/Exams Free Text/Narrative Re-Assessment/Exam: 06/26/18 20:44 Reviewed the labs and imaging with the patient. Question if this is a UTI causing symptoms as her pain was to the right CVA area and she has moderate bacteria on microscopy. Urine sent for culture. Will treat in the meantime. Discussed glucose. Patient reports sugars have been running 200-300 recently. Will discharge home. Recommend close follow-up in the clinic this week. Discharge instructions as documented. Departure - Departure Time of Disposition: 20:45 Disposition: Home, Self-Care 01 Condition: Fair Clinical Impression: UTI (urinary tract infection) Prescriptions: Cephalexin [Keflex] 500 mg PO BID #14 capsule Instructions: Urinary Tract Infection, Adult, [id number] Referrals: Josie Mathur MD [Primary Care Provider] - Forms: ED Department Discharge Additional Instructions: Keflex 1 tab twice a day for 7 days. Rest. make sure you are drinking plenty of fluids. Follow-up with your primary care provider this week for recheck of your symptoms. Position to the ER for symptoms change or worsen.
[2018-06-26] MEDS ORDERED: Ketorolac 60 MG/2 ML SDV IM ONE (20:52)
--- NOTE | 2018-06-29 07:13 | CR ---
Chest: Two views of the chest were obtained. Comparison: No prior chest x-ray. Heart size and mediastinum are normal. Lungs are clear. Bony structures are unremarkable for the patient's age. Surgical clips are seen within the upper abdomen. Impression: 1. Nothing acute is seen on two-view chest x-ray. Diagnostic code #1
== END 2018-06-26 21:23 | disposition home or self-care (01) ==
LOC: JD.ED 17:48
DX: N39.0 Urinary tract infection, site not specified (principal); R07.9 Chest pain, unspecified; N18.9 Chronic kidney disease, unspecified; F17.210 Nicotine dependence, cigarettes, uncomplicated; E78.00 Pure hypercholesterolemia, unspecified; E10.22 Type 1 diabetes mellitus with diabetic chronic kidney disease; Z88.8 Allergy status to other drugs, medicaments and biological substances; Z79.899 Other long term (current) drug therapy
CPT/HCPCS: 36415; 71046; 80053; 81001; 83690; 83735; 84443; 84484; 85025; 85379; 86140; 87086; 93005; 96372; 99285; J1885; 99283

== ENCOUNTER 2018-06-29 06:20 | Emergency (ER) | payer MEDICARE, MEDICAID ==
[2018-06-29] MEDS ORDERED: Ondansetron 4 MG/2 ML SDV IVPUSH ONE (06:53)
--- NOTE | 2018-06-29 07:32 | EDM.PDOC ---
ED HPI GENERAL MEDICAL PROBLEM - General Chief Complaint: Back Pain or Injury Stated Complaint: NAUSEA/VOMITING/BACK PAIN Time Seen by Provider: 06/29/18 06:37 Source of Information: Reports: Patient, RN Notes Reviewed - History of Present Illness INITIAL COMMENTS - FREE TEXT/NARRATIVE: 43-year-old female comes in with right-sided low back pain, nausea, vomiting. She did present to our ED 3 days ago then primarily with right-sided chest pain but with a component of radiation to the back. Comprehensive workup was done, mostly negative but did show elevated glucose in the 3:30 range and then also possibility for UTI. Urine culture was done, patient was started on cephalexin. She felt quite well yesterday but then awakened about 3 hours ago with the above symptomatology. She has no voiding symptomatology. She feels like her hands and feet are swollen. Back Pain Score (Numeric/FACES): 7 - Related Data Allergies Allergy/AdvReac Type Severity Reaction Status Date / Time atorvastatin [From Lipitor] Allergy Rash Verified 06/29/18 06:31 pseudoephedrine Allergy Rash Verified 06/29/18 06:31 [From Sudafed] komboglyze Allergy Vomiting Uncoded 06/15/18 08:51 Home Meds: Home Meds Dexlansoprazole [Dexilant] 60 mg PO BID 09/18/17 [History] Insulin Glarg,Human.Rec.Analog [LantUS Solostar] 20 units INJECT BID 09/18/17 [ History] Insulin Aspart [NovoLOG] 0 units SQ TID 03/15/18 [History] Cephalexin [Keflex] 500 mg PO BID #14 capsule 06/26/18 [Rx] Acetaminophen/HYDROcodone [Byron 325-5 MG] 1 tab PO Q6HR PRN #20 tablet [Rx] Past Medical History Cardiovascular History: Reports: High Cholesterol Respiratory History: Reports: PE Gastrointestinal History: Reports: GERD Other Gastrointestinal History: Cheng esophagus Genitourinary History: Reports: Chronic Renal Insuffiency [employer] History: Reports: Neurological History: Reports: Migraines Psychiatric History: Reports: Bipolar Other Psychiatric History: manic depression Endocrine/Metabolic History: Reports: Diabetes, Type II, Obesity/BMI 30+ Hematologic History: Reports: Bleeding Disorder Other Hematologic History: factor 5 liden - Infectious Disease History Infectious Disease History: Reports: Chicken Pox, MRSA - Past Surgical History HEENT Surgical History: Reports: Oral Surgery, Tonsillectomy GI Surgical History: Reports: Cholecystectomy, Hernia Repair/Other Female Surgical History: Reports: Section, Cervical Cryotherapy, Hysterectomy Musculoskeletal Surgical History: Reports: Shoulder Surgery, Other (See Below) Social & Family History - Family History Family Medical History: Noncontributory - Tobacco Use Smoking Status *Q: Former Smoker Used Tobacco, but Quit: Yes Month/Year Tobacco Last Used: 1 month Second Hand Smoke Exposure: No - Caffeine Use Caffeine Use: Reports: Coffee, Tea - Living Situation & Occupation Living situation: Reports: Single, with Family (Daughter) 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 Denies: Abdominal Pain, Diarrhea Musculoskeletal: Reports: Back Pain. Denies: Leg Pain Skin: Denies: Rash Neurological: Denies: Dizziness, Numbness, Tingling ED EXAM,LOWER BACK PAIN/INJURY - Physical Exam Exam: See Below General Appearance: Alert, Mild Distress Throat/Mouth: Normal Inspection Neck: Supple Respiratory/Chest: No Respiratory Distress, Lungs Clear, Normal Breath Sounds Cardiovascular: Regular Rate, Rhythm GI/Abdominal: Soft, Non-Tender. No: Guarding Back Exam: CVA Tenderness (R), Paraspinal Tenderness (Right low back) Extremities: No: Pedal Edema, Leg Pain Neurological: Alert, No Motor/Sensory Deficits Skin Exam: Warm, Dry, Normal Color Course - Vital Signs Last Recorded V/S: Last Vital Signs Temp 97.3 F 06/29/18 06:29 Pulse 70 06/29/18 06:29 Resp 18 06/29/18 06:29 BP 164/87 H 06/29/18 06:29 Pulse Ox 97 06/29/18 06:29 - Orders/Labs/Meds Orders: Active Orders 24 hr Category Date Time Status Peripheral IV Care [RC] . DIRECTED Care 06/29/18 06:50 Active Ketorolac [Toradol] Med 06/29/18 08:00 Active 15 mg IVPUSH ONETIME Sodium Chloride 0.9% [Saline Flush] Med 06/29/18 06:49 Active 10 ml FLUSH ASDIRECTED PRN Peripheral IV Insertion Adult [OM.PC] Stat Oth 06/29/18 06:50 Ordered Medication Orders Ketorolac Tromethamine (Toradol) 15 mg IVPUSH ONETIME KARIE Last Admin: 06/29/18 08:05 Dose: 15 mg Sodium Chloride (Saline Flush) 10 ml FLUSH ASDIRECTED PRN PRN Reason: Keep Vein Open Last Admin: 06/29/18 08:06 Dose: 10 ml Admin: 06/29/18 07:36 Dose: 10 ml Labs: Laboratory Tests 06/29/18 06/29/18 06/29/18 Range/Units 07:00 07:00 07:25 WBC 7.08 (3.98-10.04) K/mm3 RBC 4.63 (3.98-5.22) M/mm3 Hgb 12.5 (11.2-15.7) gm/L Hct 37.0 (34.1-44.9) % MCV 79.9 (79.4-94.8) fl MCH 27.0 (25.6-32.2) pg MCHC 33.8 (32.2-35.5) g/dl RDW Std Deviation 38.8 (36.4-46.3) fL Plt Count 257 (182-369) K/mm3 MPV 10.2 (9.4-12.3) fl Neut % (Auto) 43.7 (34.0-71.1) % Lymph % (Auto) 46.9 (19.3-51.7) % [place] % (Auto) 5.8 (4.7-12.5) % Eos % (Auto) 2.8 (0.7-5.8) Baso % (Auto) 0.7 (0.1-1.2) % Neut # (Auto) 3.09 (1.56-6.13) K/mm3 Lymph # (Auto) 3.32 (1.18-3.74) K/mm3 [place] # (Auto) 0.41 H (0.24-0.36) K/mm3 Eos # (Auto) 0.20 (0.04-0.36) K/mm3 Baso # (Auto) 0.05 (0.01-0.08) K/mm3 Sodium 136 (136-145) mEq/L Potassium 3.9 (3.5-5.1) mEq/L Chloride 104 (98-107) mEq/L Carbon Dioxide 26 (21-32) mEq/L Anion Gap 9.9 (5-15) BUN 9 (7-18) mg/dL Creatinine 0.9 (0.55-1.02) mg/dL Est Cr Clr Drug Dosing 84.23 mL/min Estimated GFR (MDRD) > 60 (>60) mL/min BUN/Creatinine Ratio 10.0 L (14-18) Glucose 191 H (74-106) mg/dL Calcium 8.7 (8.5-10.1) mg/dL Total Bilirubin 0.4 (0.2-1.0) mg/dL AST 10 L (15-37) U/L ALT 11 L (14-59) U/L Alkaline Phosphatase 95 (46-116) U/L Total Protein 6.6 (6.4-8.2) g/dl Albumin 3.0 L (3.4-5.0) g/dl Globulin 3.6 gm/dL Albumin/Globulin Ratio 0.8 L (1-2) Urine Color Yellow (Yellow) Urine Appearance Clear (Clear) Urine pH 7.0 (5.0-8.0) Ur Specific [place] 1.020 (1.005-1.030) Urine Protein Negative (Negative) Urine Glucose (UA) Negative (Negative) Urine Ketones Negative (Negative) Urine Occult Blood Negative (Negative) Urine Nitrite Negative (Negative) Urine Bilirubin Negative (Negative) Urine Urobilinogen 0.2 (0.2-1.0) Ur Leukocyte Esterase Negative (Negative) Urine RBC Not seen (0-5) /hpf Urine WBC 0-5 (0-5) /hpf Ur Epithelial Cells 0-5 (0-5) /hpf Urine Bacteria Rare (FEW) /hpf Urine Mucus Not seen (FEW) /hpf Meds: Medications Generic Name Dose Route Start Last Admin Trade Name Freq PRN Reason Stop Dose Admin Ketorolac Tromethamine 15 mg 06/29/18 08:00 06/29/18 08:05 Toradol IVPUSH 15 mg ONETIME KARIE Administration Sodium Chloride 10 ml 06/29/18 06:49 06/29/18 08:06 Saline Flush FLUSH 10 ml ASDIRECTED PRN Administration Keep Vein Open Discontinued Medications Generic Name Dose Route Start Last Admin Trade Name Marinq PRN Reason Stop Dose Admin Hydromorphone HCl 0.5 mg 06/29/18 07:54 06/29/18 08:06 Dilaudid IVPUSH 06/29/18 07:55 0.5 mg ONETIME ONE Administration Metoclopramide HCl 5 mg 06/29/18 07:54 06/29/18 08:05 Reglan IVPUSH 06/29/18 07:55 5 mg ONETIME ONE Administration Ondansetron HCl 4 mg 06/29/18 06:53 06/29/18 07:36 Zofran IVPUSH 06/29/18 06:54 4 mg ONETIME ONE Administration Departure - Departure Time of Disposition: 08:19 Disposition: Home, Self-Care 01 Condition: Fair Clinical Impression: Kidney stone, Renal colic on right side - Discharge Information Prescriptions: Acetaminophen/HYDROcodone [Byron 325-5 MG] 1 tab PO Q6HR PRN #20 tablet PRN Reason: Pain Referrals: Josie Mathur MD [Primary Care Provider] - Forms: ED Department Discharge Additional Instructions: Drink plenty of water to maintain hydration, Zofran ODT needed for further nausea or vomiting. Strain urine to watch for stone. See Dr. Mathur in 2-3 days if possible for follow-up. Call for appointment. If you do not pass the stone within a few days you will need to be referred to a Urologist. Tylenol for mild to moderate discomfort or hydrocodone if needed for more severe pain. Do not take Tylenol and hydrocodone at same time. Do not drive when taking hydrocodone. Return to ED as needed. - My Orders Last 24 Hours: My Active Orders 06/29/18 06:49 Sodium Chloride 0.9% [Saline Flush] 10 ml FLUSH ASDIRECTED PRN 06/29/18 06:50 Peripheral IV Care [RC] . DIRECTED Peripheral IV Insertion Adult [OM.PC] Stat 06/29/18 08:00 Ketorolac [Toradol] 15 mg IVPUSH ONETIME - Assessment/Plan Last 24 Hours: My Active Orders 06/29/18 06:49 Sodium Chloride 0.9% [Saline Flush] 10 ml FLUSH ASDIRECTED PRN 06/29/18 06:50 Peripheral IV Care [RC] . DIRECTED Peripheral IV Insertion Adult [OM.PC] Stat 06/29/18 08:00 Ketorolac [Toradol] 15 mg IVPUSH ONETIME
[2018-06-29] MEDS: Sodium Chloride 0.9% 10 ML Syringe FLUSH PRN ×2 (07:36→08:06)
[2018-06-29] MEDS ORDERED: Metoclopramide 10 MG/2 ML SDV IVPUSH ONE (07:54)
[2018-06-29] MEDS ORDERED: HYDROmorphone 0.5 MG/0.5 ML SYRINGE IVPUSH ONE (07:54)
[2018-06-29] MEDS ORDERED: Ketorolac 30 MG/ML SDV IVPUSH SCH (08:00)
--- NOTE | 2018-06-29 08:06 | CT ---
CT abdomen and pelvis Technique: Multiple axial sections were obtained from above the dome of the diaphragm inferiorly through the pubic symphysis. Intravenous and oral contrast was not utilized. Study has been performed as a ureteral stone protocol. Findings: 3.9 mm obstructing calculus is noted within the mid right ureter slightly below the level of the iliac crest. This obstructing stone causes mild proximal hydronephrosis. No other abnormal calcifications are seen along the course of the ureters. Visualized lung bases are clear without acute parenchymal change. Liver shows no focal parenchymal abnormality. Surgical clips are seen from prior cholecystectomy. Spleen appears within normal limits. Adrenal glands are unremarkable. Pancreas is normal. Aorta shows no aneurysm. No retroperitoneal adenopathy is seen. Lower anterior abdominal wall hernia is identified appears at the level of the umbilicus. This contains a loop of nondilated small bowel. No pelvic mass or adenopathy is seen. No free fluid or inflammatory change is seen. Mild increased stool is noted throughout the colon. Appendix is seen which is normal in size. Bone window settings were reviewed which show mild degenerative change within the L4-L5 and L5-S1 discs with disc space narrowing, posterior spurring and minimal anterior osteophytes. Lesser degenerative change within the lower thoracic spine. Impression: 1. 3.9 mm obstructing stone within the mid right ureter causing mild proximal hydronephrosis. 2. Mild increased stool within the colon and other incidental findings. Diagnostic code #3
== END 2018-06-29 08:34 | disposition home or self-care (01) ==
LOC: JD.ED 06:20
DX: N13.2 Hydronephrosis with renal and ureteral calculous obstruction (principal); Z88.8 Allergy status to other drugs, medicaments and biological substances; Z79.4 Long term (current) use of insulin; E11.9 Type 2 diabetes mellitus without complications; E66.9 Obesity, unspecified; Z87.891 Personal history of nicotine dependence
CPT/HCPCS: 36415; 74176; 80053; 81001; 85025; 96374; 96375; 99284; J1170; J1885; J2405; J2765; J7050

== ENCOUNTER 2018-06-29 18:59 | Emergency (ER) | payer MEDICARE, MEDICAID ==
[2018-06-29] MEDS ORDERED: Sodium Chloride 0.9% 1,000 ML IV ONE (19:25)
[2018-06-29] MEDS ORDERED: Ondansetron 4 MG/2 ML SDV IVPUSH ONE (19:25)
[2018-06-29] MEDS ORDERED: HYDROmorphone 0.5 MG/0.5 ML SYRINGE IVPUSH ONE (19:25)
[2018-06-29] MEDS ORDERED: Tamsulosin 0.4 MG Cap.ER PO ONE (19:37)
[2018-06-29] MEDS ORDERED: Ketorolac 30 MG/ML SDV IVPUSH ONE (21:32)
--- NOTE | 2018-06-29 22:29 | EDM.PDOC ---
ED HPI GENERAL MEDICAL PROBLEM - General Chief Complaint: Genitourinary Problem Stated Complaint: KIDNEY STONES REVISIT Time Seen by Provider: 06/29/18 19:32 Source of Information: Reports: Patient History Limitations: Reports: No Limitations - History of Present Illness INITIAL COMMENTS - FREE TEXT/NARRATIVE: Patient is a 43-year-old female presents ED complaining of pain to her right flank that wraps around to her belly button. Patient was diagnosed with a 3.9 mm obstructing stone within the mid right ureter earlier today via CT scan abdomen and pelvis. She was discharged home with with prescription for [place]. Patient states she's not been able to keep any liquids down. States she's not received adequate pain control. Patient was also evaluated June 26, 2018 for right-sided chest discomfort with radiation to her back. She has a history of factor V Leiden is on xarelto 10 mg daily for PE prophylaxis. D-dimer was obtained with a reading of 0.27. Chest x-ray had no acute intrathoracic process. UA indicated questionable UTI. The patient was started on Keflex. Culture the urine was obtained. Culture came back with mixed clara suggestive of Contamination. Patient currently denies any chest pain, shows breath, fevers , dysuria, hematuria, abnormal vaginal discharge, diarrhea, constipation, or blood in her stool. Last movement was 2 days ago. Bilateral Middle Back Pain Score (Numeric/FACES): 8 - Related Data Allergies Allergy/AdvReac Type Severity Reaction Status Date / Time atorvastatin [From Lipitor] Allergy Rash Verified 06/29/18 06:31 pseudoephedrine Allergy Rash Verified 06/29/18 06:31 [From Sudafed] komboglyze Allergy Vomiting Uncoded 06/15/18 08:51 Home Meds: Home Meds Dexlansoprazole [Dexilant] 60 mg PO BID 09/18/17 [History] Insulin Glarg,Human.Rec.Analog [LantUS Solostar] 20 units INJECT BID 09/18/17 [ History] Insulin Aspart [NovoLOG] 0 units SQ TID 03/15/18 [History] Cephalexin [Keflex] 500 mg PO BID #14 capsule 06/26/18 [Rx] Acetaminophen/HYDROcodone [[place] 325-5 MG] 1 tab PO Q6HR PRN #20 tablet [Rx] Tamsulosin HCl [Flomax] 0.4 mg PO QAM #7 cap.er.24h 06/29/18 [Rx] Past Medical History Cardiovascular History: Reports: High Cholesterol Respiratory History: Reports: PE Gastrointestinal History: Reports: GERD Other Gastrointestinal History: Cheng esophagus Genitourinary History: Reports: Chronic Renal Insuffiency, Renal Calculus SURFACE LAY OUT 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: Neurological History: Reports: Migraines Psychiatric History: Reports: Bipolar Other Psychiatric History: manic depression Endocrine/Metabolic History: Reports: Diabetes, Type II, Obesity/BMI 30+ Hematologic History: Reports: Bleeding Disorder Other Hematologic History: factor 5 liden - Infectious Disease History Infectious Disease History: Reports: Chicken Pox, MRSA - Past Surgical History HEENT Surgical History: Reports: Oral Surgery, Tonsillectomy GI Surgical History: Reports: Cholecystectomy, Hernia Repair/Other Female Surgical History: Reports: Section, Cervical Cryotherapy, Hysterectomy Musculoskeletal Surgical History: Reports: Shoulder Surgery, Other (See Below) Social & Family History - Family History Family Medical History: Noncontributory - Tobacco Use Smoking Status *Q: Former Smoker Used Tobacco, but Quit: Yes Month/Year Tobacco Last Used: 05/2018 - Caffeine Use Caffeine Use: Reports: Coffee - Recreational Drug Use Recreational Drug Use: No - Living Situation & Occupation Living situation: Reports: Single, with Family (Daughter) 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 ED EXAM, GI/ABD - Physical Exam Exam: See Below Exam Limited By: No Limitations General Appearance: Alert, WD/WN, Mild Distress Ears: Hearing Grossly Normal Nose: Normal Inspection Throat/Mouth: Normal Inspection, Normal Oropharynx, Normal Voice, No Airway Compromise Head: Atraumatic, Normocephalic Neck: Normal Inspection, Supple Respiratory/Chest: No Respiratory Distress, Lungs Clear, Normal Breath Sounds, Chest Non-Tender Cardiovascular: Normal Peripheral Pulses, Regular Rate, Rhythm GI/Abdominal Exam: Normal Bowel Sounds, Soft, Non-Tender (With palpation), No Organomegaly, No Distention Back Exam: Normal Inspection, CVA Tenderness (R) (Right flank) Extremities: Normal Inspection Neurological: Alert, Oriented, CN II-XII Intact, Normal Cognition, No Motor/ Sensory Deficits Psychiatric: Normal Affect, Normal Mood Course - Vital Signs Last Recorded V/S: Last Vital Signs Temp 97.3 F 06/29/18 19:05 Pulse 79 06/29/18 19:05 Resp 20 06/29/18 19:05 BP 159/80 H 06/29/18 19:05 Pulse Ox 100 06/29/18 19:05 - Orders/Labs/Meds Labs: Laboratory Tests 06/29/18 06/29/18 06/29/18 Range/Units 19:35 19:35 20:52 WBC 8.40 (3.98-10.04) K/mm3 RBC 4.59 (3.98-5.22) M/mm3 Hgb 12.3 (11.2-15.7) gm/L Hct 36.9 (34.1-44.9) % MCV 80.4 (79.4-94.8) fl MCH 26.8 (25.6-32.2) pg MCHC 33.3 (32.2-35.5) g/dl RDW Std Deviation 38.5 (36.4-46.3) fL Plt Count 263 (182-369) K/mm3 MPV 10.6 (9.4-12.3) fl Neutrophils % (Manual) 63 H (40-60) % Band Neutrophils % 0 (0-10) % Lymphocytes % (Manual) 37 (20-40) % Atypical Lymphs % 0 % Immat Monocytes % (Man) 0 Monocytes % (Manual) 0 L (2-10) % Eosinophils % (Manual) 0 L (0.7-5.8) % Basophils % (Manual) 0 L (0.1-1.2) Metamyelocytes % 0 Myelocytes % 0 Promyelocytes % 0 Blast Cells % 0 Plasma Cell % (Manual) 0 Nucleated RBCs 0.0 % Platelet Estimate Adequate RBC Morph Comment Normal Sodium 139 (136-145) mEq/L Potassium 3.8 (3.5-5.1) mEq/L Chloride 106 (98-107) mEq/L Carbon Dioxide 25 (21-32) mEq/L Anion Gap 11.8 (5-15) BUN 11 (7-18) mg/dL Creatinine 1.0 (0.55-1.02) mg/dL Est Cr Clr Drug Dosing 75.81 mL/min Estimated GFR (MDRD) > 60 (>60) mL/min BUN/Creatinine Ratio 11.0 L (14-18) Glucose 134 H (74-106) mg/dL Calcium 8.4 L (8.5-10.1) mg/dL Total Bilirubin 0.2 (0.2-1.0) mg/dL AST 13 L (15-37) U/L ALT 12 L (14-59) U/L Alkaline Phosphatase 97 (46-116) U/L C-Reactive Protein 1.4 H* (<1.0) mg/dL Total Protein 6.6 (6.4-8.2) g/dl Albumin 3.0 L (3.4-5.0) g/dl Globulin 3.6 gm/dL Albumin/Globulin Ratio 0.8 L (1-2) Urine Color Yellow (Yellow) Urine Appearance Clear (Clear) Urine pH 5.5 (5.0-8.0) Ur Specific [place] 1.020 (1.005-1.030) Urine Protein Negative (Negative) Urine Glucose (UA) Negative (Negative) Urine Ketones Negative (Negative) Urine Occult Blood Negative (Negative) Urine Nitrite Negative (Negative) Urine Bilirubin Negative (Negative) Urine Urobilinogen 0.2 (0.2-1.0) Ur Leukocyte Esterase Negative (Negative) Urine RBC 0-5 (0-5) /hpf Urine WBC 0-5 (0-5) /hpf Ur Epithelial Cells 0-5 (0-5) /hpf Urine Bacteria Rare (FEW) /hpf Urine Mucus Not seen (FEW) /hpf Meds: Medications Discontinued Medications Generic Name Dose Route Start Last Admin Trade Name Freq PRN Reason Stop Dose Admin Hydromorphone HCl 0.5 mg 06/29/18 19:25 06/29/18 19:45 Dilaudid IVPUSH 06/29/18 19:26 0.5 mg ONETIME ONE Administration Sodium Chloride 1,000 mls @ 999 mls/hr 06/29/18 19:25 06/29/18 19:42 Normal Saline IV 06/29/18 20:25 999 mls/hr ONETIME ONE Administration Ketorolac Tromethamine 30 mg 06/29/18 21:32 06/29/18 21:41 Toradol IVPUSH 06/29/18 21:33 30 mg ONETIME ONE Administration Magnesium Citrate 296 ml 06/29/18 22:46 06/29/18 23:00 Citrate Of Magnesia PO 06/29/18 22:47 296 ml ONETIME ONE Administration Ondansetron HCl 4 mg 06/29/18 19:25 06/29/18 19:43 Zofran IVPUSH 06/29/18 19:26 4 mg ONETIME ONE Administration Tamsulosin HCl 0.4 mg 06/29/18 19:37 06/29/18 19:46 Flomax PO 06/29/18 19:38 0.4 mg ONETIME ONE Administration - Re-Assessments/Exams Free Text/Narrative Re-Assessment/Exam: IV will be established with Dilaudid and Zofran. Initial labs and studies include: CBC, CMP, CRP, and UA. Reviewed previous CT of the abdomen/pelvis. Labs reviewed: CBC was essentially normal. Sodium potassium within normal limits. Creatinine 1.0. Glucose 134. CRP 1.4. UA was negative. Patient did not get adequate pain control with the Dilaudid. I ordered Toradol 30 mg IV. In addition Flomax 0.4 mg by mouth order. Believe discomfort is related to kidney stone continuing to pass and constipation. We discussed getting another CT of the abdomen and pelvis to which we both agreed is not needed. Patients VSS are stable. Pain is mild to moderate. She is not toxic appearing. Remained afebrile through E.D. visit. I have ordered mag citrate, 1/2 bottle to be drank here in the E.D. Discuss results of labs with patient. Pain is improving. She is ready be discharged home.The patient remained hemodynamically stable while under my care in the E.D. I discussed the concerning symptoms for which to returnto the E.D. with the patient. The patient verbalized understanding. All questions were answered. Departure - Departure Time of Disposition: 22:45 Disposition: Home, Self-Care 01 Condition: Good Clinical Impression: Renal colic on right side, Kidney calculi Constipation Qualifiers: Constipation type: unspecified constipation type Qualified Code(s): K59.00 - Constipation, unspecified - Discharge Information Prescriptions: Tamsulosin HCl [Flomax] 0.4 mg PO QAM #7 cap.er.24h Instructions: High-Fiber Diet, Kidney Stones, Constipation, Adult, [id number] , Renal Colic, Pain Medicine Instructions, [id number], Probiotics Referrals: Josie Mathur MD [Primary Care Provider] - Forms: ED Department Discharge Additional Instructions: Continue pushing the fluids. Take Tylenol and ibuprofen in alternating fashion for discomfort. For severe pain take the [place] one tablet every 6 hours. Continue taking the Zofran as prescribed for nausea/vomiting. Start taking Flomax 1 tab every day for the next 7 days. Continue to strain all urine voids. If pain persists and if you have not passed the kidney stone please call and make an appointment to see urologist of your choice in [place]. Take the other half bottle of mag citrate tomorrow morning. Start taking MiraLAX one capful every day with copious amounts of water. Increase fiber intake. Start exercising on a routine basis. Follow-up with your PCP for further evaluation for constipation if persists. Return to the E.D. if you develop any new or worsening symptoms. No driving this evening and/or while taking the [place].
[2018-06-29] MEDS ORDERED: Magnesium Citrate Solution 296 ML Bottle PO ONE (22:46)
== END 2018-06-29 23:03 | disposition home or self-care (01) ==
LOC: JD.ED 18:59
DX: N20.0 Calculus of kidney (principal); K59.00 Constipation, unspecified; N18.9 Chronic kidney disease, unspecified; E11.22 Type 2 diabetes mellitus with diabetic chronic kidney disease; E66.9 Obesity, unspecified; Z79.4 Long term (current) use of insulin; Z87.891 Personal history of nicotine dependence; Z88.8 Allergy status to other drugs, medicaments and biological substances
CPT/HCPCS: 36415; 80053; 81001; 85007; 85027; 86140; 96361; 96374; 96375; 99284; A9270; J1170; J1885; J2405; J7040

== ENCOUNTER 2018-07-07 20:22 | Emergency (ER) | payer MEDICARE, MEDICAID ==
--- NOTE | 2018-07-07 20:53 | EDM.PDOC ---
ED HPI GENERAL MEDICAL PROBLEM - General Chief Complaint: Abdominal Pain Stated Complaint: ABDOMINAL PAIN Time Seen by Provider: 07/07/18 20:53 Source of Information: Reports: Patient History Limitations: Reports: No Limitations - History of Present Illness INITIAL COMMENTS - FREE TEXT/NARRATIVE: 43-year-old female presents to the ED with acute onset of severe right flank pain rating down to her right groin. Patient has a history of renal colic on the right side requiring lithotripsy last , July 02 in [place]. Stent was removed this morning in clinic and she developed pain for about an hour. After that pain seemed to settle until about 2 hours ago when that started up again. Pain is acting just like her kidney stone didn't go. Pain is radiating into her right groin associated with nausea and vomiting no position is comfortable. Sister first go around with a kidney stone. Unaware of any blood in her urine. Denies any fever or chills. Emesis is bilious without blood. Onset: Today Onset Date: 07/07/18 (Patient had stent removed from right ureter in clinic this morning. Develop pain for about an hour but then it returned about 2 hours ago in his severe and intense particularly right lower quadrant of the abdomen rating up into her right flank. Associated nausea and vomiting) Onset Time: 19:00 Duration: Hour(s): Location: Reports: Abdomen (Right flank right hemiabdomen radiating down to the right groin), Back Quality: Reports: Ache, Sharp, Stabbing Severity: Severe Improves with: Reports: None (10 out of 10 in no position is comfortable.) Context: Reports: Other (Had lithotripsy last , July 02 for a large stone in the right ureter. Stent was removed this morning and she developed pain for about an hour afterwards. An x-ray suggested constipation but no evidence of a stone. A few hours ago she developed sudden onset of severe right neri-abdominal pain rating to her right flank compatible with recurrent renal colic. No position is covered. Associated development of immediate nausea and vomiting.). Denies: Activity, Exercise, Lifting, Sick Contact, Trauma Associated Symptoms: Reports: Nausea/Vomiting. 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) (None.) Right Lower Abdomen Pain Score (Numeric/FACES): 10 - Related Data Allergies Allergy/AdvReac Type Severity Reaction Status Date / Time atorvastatin [From Lipitor] Allergy Rash Verified 06/29/18 06:31 pseudoephedrine Allergy Rash Verified 06/29/18 06:31 [From Sudafed] komboglyze Allergy Vomiting Uncoded 06/15/18 08:51 Home Meds: Home Meds Dexlansoprazole [Dexilant] 60 mg PO BID 09/18/17 [History] Insulin Glarg,Human.Rec.Analog [LantUS Solostar] 20 units INJECT BID 09/18/17 [ History] Insulin Aspart [NovoLOG] 0 units SQ TID 03/15/18 [History] Acetaminophen/HYDROcodone [[place] 325-5 MG] 1 tab PO Q6HR PRN #20 tablet [Rx] Ondansetron [Zofran] 4 mg BUCCAL Q6H PRN #6 tab 07/07/18 [Rx] oxyCODONE HCl/Acetaminophen [Percocet 5-325 mg Tablet] 1 - 2 each PO Q4H PRN # 20 tablet 07/07/18 [Rx] Past Medical History Cardiovascular History: Reports: High Cholesterol Respiratory History: Reports: PE Gastrointestinal History: Reports: GERD Other Gastrointestinal History: Cheng esophagus Genitourinary History: Reports: Chronic Renal Insuffiency, Renal Calculus, Other (See Below) Other Genitourinary History: 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: Neurological History: Reports: Migraines Psychiatric History: Reports: Bipolar Other Psychiatric History: manic depression Endocrine/Metabolic History: Reports: Diabetes, Type II (Controlled with insulin.), Obesity/BMI 30+ Hematologic History: Reports: Bleeding Disorder Other Hematologic History: factor 5 liden - Infectious Disease History Infectious Disease History: Reports: Chicken Pox, MRSA - Past Surgical History HEENT Surgical History: Reports: Oral Surgery, Tonsillectomy GI Surgical History: Reports: Cholecystectomy, Hernia Repair/Other Female Surgical History: Reports: Section, Cervical Cryotherapy, Hysterectomy Musculoskeletal Surgical History: Reports: Shoulder Surgery, Other (See Below) Social & Family History - Family History Family Medical History: Noncontributory - Tobacco Use Smoking Status *Q: Former Smoker Used Tobacco, but Quit: Yes Month/Year Tobacco Last Used: 1 month - Caffeine Use Caffeine Use: Reports: Coffee, Soda, Tea - Recreational Drug Use Recreational Drug Use: No - Living Situation & Occupation Living situation: Reports: Single, with Family (Daughter) 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 Pain radiates into the right flank compatible with renal colic.), Nausea, Vomiting (Recurrent vomiting 42 hours. Emesis is bilious.) : Reports: Other (Recent lithotripsy last , July 02 for a retained stone in the right mid ureter. Stent was removed earlier this morning and she had pain for about an hour afterwards. Then seemed to settle but came back a few hours ago associated with nausea vomiting and terrible renal colic pain suggestive of retained residual stone or partial stone.) Musculoskeletal: Reports: Back Pain Skin: Reports: No Symptoms (Right flank) Neurological: Reports: No Symptoms Psychiatric: Reports: No Symptoms Hematologic/Lymphatic: Reports: No Symptoms Immunologic: Reports: No Symptoms ED EXAM, GI/ABD - Physical Exam Exam: See Below Exam Limited By: No Limitations General Appearance: Alert, WD/WN, Severe Distress (No position is comfortable. Patient is writhing all over the bed. She is vomiting intermittently of bilious material.) Respiratory/Chest: No Respiratory Distress, Lungs Clear, Normal Breath Sounds, No Accessory Muscle Use, Respiratory Distress Cardiovascular: Normal Peripheral Pulses, Regular Rate, Rhythm, No Edema, No Gallop (Tachypnea at rest 22-24/m.), No Murmur GI/Abdominal Exam: Normal Bowel Sounds, Soft, Guarding (Tender right upper quadrant and right midabdomen to palpation.), Tender, Abnormal Bowel Sounds ( Decreased bowel sounds.). No: Rigid, Rebound Back Exam: CVA Tenderness (R) Extremities: Normal Inspection (Moderate.), Normal Range of Motion, Non-Tender, No Pedal Edema Neurological: Alert, Oriented, CN II-XII Intact, Normal Cognition Psychiatric: Other Skin Exam: Warm, Dry, Intact (In severe pain), Normal Color, No Rash Course - Vital Signs Last Recorded V/S: Last Vital Signs Temp 37.1 C 07/07/18 20:38 Pulse 76 07/07/18 20:38 Resp 22 H 07/07/18 20:38 BP 159/118 H 07/07/18 20:38 Pulse Ox 98 07/07/18 20:38 - Orders/Labs/Meds Orders: Active Orders 24 hr Category Date Time Status Abdomen Pelvis wo Cont [CT] Stat Exams 07/07/18 20:58 Taken URINALYSIS W/MICROSCOPIC [UA W/MICROSCOPIC] [URIN] Stat Lab 07/07/18 20:57 Ordered Ketorolac [Toradol] Med 07/07/18 21:00 Active 30 mg IVPUSH ONETIME Sodium Chloride 0.9% [Normal Saline] 1,000 ml Med 07/07/18 21:00 Active IV ASDIRECTED Medication Orders Sodium Chloride (Normal Saline) 1,000 mls @ 150 mls/hr IV ASDIRECTED KARIE Last Admin: 07/07/18 21:08 Dose: 150 mls/hr Ketorolac Tromethamine (Toradol) 30 mg IVPUSH ONETIME KARIE Last Admin: 07/07/18 21:07 Dose: 30 mg Meds: Medications Generic Name Dose Route Start Last Admin Trade Name Freq PRN Reason Stop Dose Admin Sodium Chloride 1,000 mls @ 150 mls/hr 07/07/18 21:00 07/07/18 21:08 Normal Saline IV 150 mls/hr ASDIRECTED KARIE Administration Ketorolac Tromethamine 30 mg 07/07/18 21:00 07/07/18 21:07 Toradol IVPUSH 30 mg ONETIME KARIE Administration Discontinued Medications Generic Name Dose Route Start Last Admin Trade Name Freq PRN Reason Stop Dose Admin Hydromorphone HCl 1 mg 07/07/18 20:57 07/07/18 21:08 Dilaudid IVPUSH 07/07/18 20:58 1 mg ONETIME ONE Administration Metoclopramide HCl 10 mg 07/07/18 20:57 07/07/18 21:08 Reglan IVPUSH 07/07/18 20:58 10 mg ONETIME ONE Administration - Radiology Interpretation Free Text/Narrative:: 43-year-old female presents the ED with acute onset of right flank pain radiating down to her right groin compatible with renal colic. Patient had lithotripsy performed in [place] last , July 02. She was back to [place] this morning to have her stent removed. She states she developed pain for about an hour afterwards. An x-ray was done and did not reveal any obvious stones but suggestive constipation according to the patient. Pain lasted for a good hour and then seem to settle down. About 2 hours ago she developed severe right lower quadrant abdominal pain rating to the right flank with associated nausea vomiting compatible with recurrent renal colic. Suspect that she has a partial residual stone that is now moving post removal of her stent. Plan IV normal saline at 150 mils per hour. Given Dilaudid 1 mg IV with Reglan 10 mg IV and Toradol 30 mg IV for acute pain and nausea relief. Plan will be to obtain a urinalysis and repeat CT of the abdomen and pelvis per renal protocol - Re-Assessments/Exams Free Text/Narrative Re-Assessment/Exam: 07/07/18 21:28 CT scan of the abdomen and pelvis has been performed. Visualized portions of the lower lungs appear to be clear without atelectasis or infiltrate. Cardiac silhouette is normal. She does have a moderate sized hiatal hernia. Liver appears homogeneous. Gallbladder is absent. Peers normal spleen appears normal. Adrenal glands appear normal. The left kidney and ureter are normal as well. The right side shows significant hydronephrosis of the right kidney with markedly dilated right renal pelvis and hydroureter down to the distal one third of the ureter where there is a 3.2 mm stone causing high-grade obstruction. There is a fair amount of stool throughout the entire colon. She has a large umbilical hernia that does contain small bowel. Bowel is not incarcerated in this hernia. Pain is starting to improve she reports is down to a 4 out of 10. 07/07/18 21:57 patient is feeling much improved. She will therefore be discharged to home. Write a prescription for Percocet tabs 5/3/25 milligrams one or 2 every 4-6 hours needed for pain relief with Zofran 4 mg sublingually every 4-6 hours needed for nausea. Departure - Departure Time of Disposition: 21:57 Disposition: Home, Self-Care 01 Condition: Fair Clinical Impression: Renal colic on right side - Discharge Information *PRESCRIPTION DRUG MONITORING PROGRAM REVIEWED*: Not Applicable *COPY OF PRESCRIPTION DRUG MONITORING REPORT IN PATIENT YARELIS: Not Applicable Prescriptions: Ondansetron [Zofran] 4 mg BUCCAL Q6H PRN #6 tab PRN Reason: nausea or vomiting oxyCODONE HCl/Acetaminophen [Percocet 5-325 mg Tablet] 1 - 2 each PO Q4H PRN # 20 tablet PRN Reason: pain relief. Instructions: Kidney Stones, [id number] Referrals: Mariana Cheng MD [Primary Care Provider] - Forms: ED Department Discharge Additional Instructions: Evaluation the emergency room today in regards to development of severe right flank pain or testicle renal colic or having urinary stent removed today. Pain was present for a good 2 hours after stent removal this morning. Down until this evening when it returned with increased severity and associated nausea and vomiting. CT scan reveals marked dilatation of the right ureter and right kidney compatible with obstruction. I feel there is a 3.2 mm stone in the very lower portion of the right ureter causing this degree of obstruction. You're treated with intravenous Dilaudid 1 mg Toradol 30 mg and Reglan 10 mg IV for nausea vomiting and pain relief. Treatment at home is to strain the urine until stone is identified to have passed. Percocet tabs 02/12/25 one or 2 every 4-6 hours as needed when the pain reoccurs. Zofran 4 mg under the tongue to prevent nausea vomiting and make sure you can keep down the pain pills. Pain is uncontrolled or nausea vomiting prevents pain medication from staying down return to the ED. - My Orders Last 24 Hours: My Active Orders 07/07/18 20:57 URINALYSIS W/MICROSCOPIC [UA W/MICROSCOPIC] [URIN] Stat 07/07/18 20:58 Abdomen Pelvis wo Cont [CT] Stat 07/07/18 21:00 Ketorolac [Toradol] 30 mg IVPUSH ONETIME Sodium Chloride 0.9% [Normal Saline] 1,000 ml IV ASDIRECTED - Assessment/Plan Last 24 Hours: My Active Orders 07/07/18 20:57 URINALYSIS W/MICROSCOPIC [UA W/MICROSCOPIC] [URIN] Stat 07/07/18 20:58 Abdomen Pelvis wo Cont [CT] Stat 07/07/18 21:00 Ketorolac [Toradol] 30 mg IVPUSH ONETIME Sodium Chloride 0.9% [Normal Saline] 1,000 ml IV ASDIRECTED
[2018-07-07] MEDS ORDERED: HYDROmorphone 1 MG/ML Syringe IVPUSH ONE (20:57)
[2018-07-07] MEDS ORDERED: Metoclopramide 10 MG/2 ML SDV IVPUSH ONE (20:57)
[2018-07-07] MEDS ORDERED: Ketorolac 30 MG/ML SDV IVPUSH SCH (21:00)
[2018-07-07] MEDS ORDERED: Sodium Chloride 0.9% 1,000 ML IV SCH (21:00)
--- NOTE | 2018-07-08 07:39 | CT ---
CT abdomen and pelvis Technique: Multiple axial sections were obtained from above the dome of the diaphragm inferiorly through the pubic symphysis. Intravenous and oral contrast was not utilized. Study has been performed as a ureteral stone protocol. Comparison: Previous CT abdomen and pelvis exam of 06/29/18. Findings: Increasing dilatation of the right ureter is seen as an interval change from prior CT exam. There is a small calcification projected next to the mid right ureter at the level of the iliac crests. This calcification appears unchanged from prior CT exams and most likely represents an adjacent vascular calcification and not a ureteral stone. Other calcifications are seen more distally which are close to the ureter which are also felt to be vascular in etiology. No ureteral calculi are seen. No renal calculi are seen. Ureter is dilated on the right side down to the bladder. Visualized lung bases show nothing acute. Liver and spleen have a normal noncontrast CT appearance. Adrenal glands show no nodule. Pancreas is normal. Surgical clips are seen from prior cholecystectomy. Aorta shows no aneurysm. No retroperitoneal adenopathy or mesenteric abnormalities are seen. Hernia is identified at the level of the umbilicus containing a loop of nondilated small bowel which is stable. No pelvic mass or adenopathy is seen. Bone window settings were reviewed which show stable degenerative change within the spine. Impression: 1. Increasing right-sided ureteral dilatation from prior study which extends down the UVJ. 2. Small stable calcification next to the mid ureter at the level of the iliac crests which appears stable from prior CT exams. Since this is stable in location this most likely represents an adjacent vascular calcification rather than ureteral stone. Contrast study would be needed to confirm if clinically indicated. 3. No other ureteral calculi are appreciated. No etiology appreciated at this time to indicate the reason for the patient's right-sided hydronephrosis. 4. Stable anterior abdominal wall hernia and other incidental findings. Diagnostic code #3 Agree with preliminary report issued by [facility] ([facility] preliminary report dictated on 07/07/18, 10:50 PM Central Time)
== END 2018-07-07 22:30 | disposition home or self-care (01) ==
LOC: JD.ED 20:22
DX: N13.2 Hydronephrosis with renal and ureteral calculous obstruction (principal); N18.9 Chronic kidney disease, unspecified; E66.9 Obesity, unspecified; E11.22 Type 2 diabetes mellitus with diabetic chronic kidney disease; Z79.4 Long term (current) use of insulin; Z87.891 Personal history of nicotine dependence; Z88.8 Allergy status to other drugs, medicaments and biological substances
CPT/HCPCS: 74176; 81001; 96361; 96374; 96375; 99284; J1170; J1885; J2765; J7040

== ENCOUNTER 2018-07-08 10:41 | Emergency (ER) | payer MEDICARE, MEDICAID ==
[2018-07-08] MEDS ORDERED: Sodium Chloride 0.9% 1,000 ML IV ONE (11:30)
[2018-07-08] MEDS ORDERED: Sodium Chloride 0.9% 10 ML Syringe FLUSH PRN (11:30)
[2018-07-08] MEDS ORDERED: Ondansetron 4 MG/2 ML SDV IVPUSH ONE (11:30)
[2018-07-08] MEDS ORDERED: Ketorolac 30 MG/ML SDV IVPUSH ONE (11:30)
[2018-07-08] MEDS ORDERED: Dicyclomine 20 MG/2 ML SDV IM ONE (12:25)
--- NOTE | 2018-07-08 12:42 | EDM.PDOC ---
ED HPI GENERAL MEDICAL PROBLEM - General Chief Complaint: Genitourinary Problem Stated Complaint: LOWER ABDOMINAL PAIN Time Seen by Provider: 07/08/18 11:24 Source of Information: Reports: Patient, Old Records History Limitations: Reports: No Limitations - History of Present Illness INITIAL COMMENTS - FREE TEXT/NARRATIVE: 43-year-old female presents for evaluation and treatment of pain radiating from the right side her back to her right flank and groin. Patient has been seen several different occasions with the same problem. She was initially seen on June 26 for complaints of chest pain. She is concerned that she had a pulmonary embolus she is a history of pulmonary embolus. She is on Xarelto to prevent these. D-dimer was negative and workup was essentially negative. She presented to the ER again on June 29. Have found to have a 3.9 mm stone in the mid right ureter. She was referred to urology. She did follow up with . Reportedly stone was visualized in the ureter. Question if this was a calcification next to the ureter. She did have a stent placed due to inflammation in her ureter and this was removed yesterday. She presented to the ER again last night. Had a repeat CT done which showed right-sided ureteral dilation but no stone. Calcification next to the medical ureter. She was prescribed Zofran and Percocet. Patient reports that she's been taking the Percocet and Zofran. She took 2 Percocet that 0400 this morning and 1 at 0800 today but this did not help with her pain. She states that she has been feeling diaphoretic, nausea and vomiting. She reports that her urine was brown in color lasting reports increased urinary frequency. She denies any fevers, chills or any constipation. Reports that she 3 bowel movements yesterday and one today. She denies any blood in her stool but states that there is some hematochezia and she treats this to hemorrhoids. She She has been off her xarelto since before she had the stent was placed. Primary care provider is Dr. Mathur. 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: oxycodone at 0800 Right Lower Abdomen Pain Score (Numeric/FACES): 9 - Related Data Allergies Allergy/AdvReac Type Severity Reaction Status Date / Time atorvastatin [From Lipitor] Allergy Rash Verified 06/29/18 06:31 pseudoephedrine Allergy Rash Verified 06/29/18 06:31 [From Sudafed] komboglyze Allergy Vomiting Uncoded 06/15/18 08:51 Home Meds: Home Meds Dexlansoprazole [Dexilant] 60 mg PO BID 09/18/17 [History] Insulin Glarg,Human.Rec.Analog [LantUS Solostar] 20 units INJECT BID 09/18/17 [ History] Insulin Aspart [NovoLOG] 0 units SQ TID 03/15/18 [History] Acetaminophen/HYDROcodone [[place] 325-5 MG] 1 tab PO Q6HR PRN #20 tablet [Rx] Ondansetron [Zofran] 4 mg BUCCAL Q6H PRN #6 tab 07/07/18 [Rx] oxyCODONE HCl/Acetaminophen [Percocet 5-325 mg Tablet] 1 - 2 each PO Q4H PRN # 20 tablet 07/07/18 [Rx] Ketorolac [Toradol] 10 mg PO Q6H PRN #20 tab 07/08/18 [Rx] Metoclopramide HCl [Reglan] 5 mg PO TID PRN #15 tablet 07/08/18 [Rx] Tamsulosin [Tamsulosin 24 Hr] 0.4 mg PO DAILY #7 cap.er 07/08/18 [Rx] Past Medical History Cardiovascular History: Reports: High Cholesterol Respiratory History: Reports: PE Gastrointestinal History: Reports: GERD Other Gastrointestinal History: Cheng esophagus Genitourinary History: Reports: Chronic Renal Insuffiency, Renal Calculus, Other (See Below) Other Genitourinary History: lithotripsy 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: Neurological History: Reports: Migraines Psychiatric History: Reports: Bipolar Other Psychiatric History: manic depression Endocrine/Metabolic History: Reports: Diabetes, Type II, Obesity/BMI 30+ Hematologic History: Reports: Bleeding Disorder Other Hematologic History: factor 5 liden - Infectious Disease History Infectious Disease History: Reports: Chicken Pox, MRSA - Past Surgical History HEENT Surgical History: Reports: Oral Surgery, Tonsillectomy GI Surgical History: Reports: Cholecystectomy, Hernia Repair/Other Female Surgical History: Reports: Section, Cervical Cryotherapy, Hysterectomy Musculoskeletal Surgical History: Reports: Shoulder Surgery, Other (See Below) Social & Family History - Family History Family Medical History: Noncontributory - Tobacco Use Smoking Status *Q: Former Smoker Used Tobacco, but Quit: Yes Month/Year Tobacco Last Used: 05/2018 - Caffeine Use Caffeine Use: Reports: Coffee - Recreational Drug Use Recreational Drug Use: No - Living Situation & Occupation Living situation: Reports: Single, with Family (Daughter) 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 Denies: Fever, Chills Cardiovascular: Denies: Chest Pain GI/Abdominal: Reports: Abdominal Pain (right lower abdomen into groni), Hematochezia (reports history of hemorrhoids), Nausea, Vomiting : Reports: Flank Pain (right) Musculoskeletal: Reports: Back Pain (right mid back) ED EXAM, GI/ABD - Physical Exam Exam: See Below Exam Limited By: No Limitations General Appearance: Alert, WD/WN, No Apparent Distress, Obese Nose: Normal Inspection Throat/Mouth: Normal Inspection, Normal Voice, No Airway Compromise Respiratory/Chest: No Respiratory Distress, Lungs Clear, Normal Breath Sounds Cardiovascular: Normal Peripheral Pulses, Regular Rate, Rhythm, No Murmur GI/Abdominal Exam: Normal Bowel Sounds, Soft, Tender (mild right flank and mid right abdomen), Other (no pain at mcburnies point) Neurological: Alert, Oriented, Normal Cognition Psychiatric: Normal Affect, Normal Mood Skin Exam: Warm, Dry, Normal Color Course - Vital Signs Last Recorded V/S: Last Vital Signs Temp 97.1 F 07/08/18 10:46 Pulse 84 07/08/18 10:46 Resp 20 07/08/18 10:46 BP 153/95 H 07/08/18 10:46 Pulse Ox 100 07/08/18 10:46 - Orders/Labs/Meds Labs: Laboratory Tests 07/08/18 07/08/18 07/08/18 Range/Units 11:09 11:38 11:38 WBC 9.91 (3.98-10.04) K/mm3 RBC 4.81 (3.98-5.22) M/mm3 Hgb 12.8 (11.2-15.7) gm/L Hct 38.4 (34.1-44.9) % MCV 79.8 (79.4-94.8) fl MCH 26.6 (25.6-32.2) pg MCHC 33.3 (32.2-35.5) g/dl RDW Std Deviation 40.4 (36.4-46.3) fL Plt Count 278 (182-369) K/mm3 MPV 10.3 (9.4-12.3) fl Neutrophils % (Manual) 58 (40-60) % Band Neutrophils % 0 (0-10) % Lymphocytes % (Manual) 38 (20-40) % Atypical Lymphs % 0 % Monocytes % (Manual) 1 L (2-10) % Eosinophils % (Manual) 3 (0.7-5.8) % Basophils % (Manual) 0 L (0.1-1.2) Platelet Estimate Adequate RBC Morph Comment Normal Sodium 135 L (136-145) mEq/L Potassium 4.1 (3.5-5.1) mEq/L Chloride 103 (98-107) mEq/L Carbon Dioxide 25 (21-32) mEq/L Anion Gap 11.1 (5-15) BUN 20 H (7-18) mg/dL Creatinine 1.2 H (0.55-1.02) mg/dL Est Cr Clr Drug Dosing 63.17 mL/min Estimated GFR (MDRD) 49 (>60) mL/min BUN/Creatinine Ratio 16.7 (14-18) Glucose 217 H (74-106) mg/dL Calcium 8.7 (8.5-10.1) mg/dL Total Bilirubin 0.3 (0.2-1.0) mg/dL AST 14 L (15-37) U/L ALT 12 L (14-59) U/L Alkaline Phosphatase 110 (46-116) U/L C-Reactive Protein 4.0 H* (<1.0) mg/dL Total Protein 7.5 (6.4-8.2) g/dl Albumin 3.3 L (3.4-5.0) g/dl Globulin 4.2 gm/dL Albumin/Globulin Ratio 0.8 L (1-2) Lipase 92 (73-393) U/L Urine Color Dark yellow (Yellow) Urine Appearance Clear (Clear) Urine pH 5.5 (5.0-8.0) Ur Specific Melvin > or = 1.030 (1.005-1.030) Urine Protein 1+ H (Negative) Urine Glucose (UA) 1+ H (Negative) Urine Ketones Negative (Negative) Urine Occult Blood 2+ H (Negative) Urine Nitrite Negative (Negative) Urine Bilirubin Negative (Negative) Urine Urobilinogen 0.2 (0.2-1.0) Ur Leukocyte Esterase Negative (Negative) Urine RBC 20-30 H (0-5) /hpf Urine WBC 0-5 (0-5) /hpf Ur Epithelial Cells 0-5 (0-5) /hpf Urine Bacteria Few (FEW) /hpf Urine Mucus Few (FEW) /hpf Meds: Medications Discontinued Medications Generic Name Dose Route Start Last Admin Trade Name Freq PRN Reason Stop Dose Admin Dicyclomine HCl 20 mg 07/08/18 12:25 07/08/18 12:40 Bentyl IM 07/08/18 12:26 20 mg ONETIME ONE Administration Sodium Chloride 1,000 mls @ 999 mls/hr 07/08/18 11:30 07/08/18 11:41 Normal Saline IV 07/08/18 12:30 999 mls/hr ONETIME ONE Administration Ketorolac Tromethamine 30 mg 07/08/18 11:30 07/08/18 11:43 Toradol IVPUSH 07/08/18 11:31 30 mg ONETIME ONE Administration Ondansetron HCl 4 mg 07/08/18 11:30 07/08/18 11:45 Zofran IVPUSH 07/08/18 11:31 4 mg ONETIME ONE Administration Sodium Chloride 10 ml 07/08/18 11:30 07/08/18 11:46 Saline Flush FLUSH 10 ml ASDIRECTED PRN Administration Keep Vein Open - Radiology Interpretation Free Text/Narrative:: Abdomen: Supine view of the abdomen was obtained. Comparison: No previous study. Bowel gas pattern is normal. Surgical clips are seen from prior cholecystectomy. Calcification is noted within the right pelvis most likely due to phlebolith. Bony structures appear within normal limits. Impression: 1. Incidental findings. Nothing acute is suspected on supine abdominal x-ray. - Re-Assessments/Exams Free Text/Narrative Re-Assessment/Exam: 07/08/18 13:26 I reviewed the patient's records from this month including her multiple CT scans and labs. I do not feel that she has a kidney stone I do feel that this is a calcification next to her ureter. The most of her pain is actually from ureteral spasm and constipation. She has been taking narcotic pain medication and is a diabetic both which can contribute to constipation. Patient was searched on the [place] prescription drug registry and she has received 14 prescriptions from 10 different prescribers within the last year for controlled substances. I'm recommending we restart her on some Flomax to help with the ureteral spasm. Also recommending a bowel cleanout with magnesium citrate and close follow-up in the clinic tomorrow. Discharge instructions as documented. Departure - Departure Time of Disposition: 13:27 Disposition: Home, Self-Care 01 Condition: Fair Clinical Impression: Abdominal pain Constipation Qualifiers: Constipation type: unspecified constipation type Qualified Code(s): K59.00 - Constipation, unspecified - Discharge Information *PRESCRIPTION DRUG MONITORING PROGRAM REVIEWED*: Yes *COPY OF PRESCRIPTION DRUG MONITORING REPORT IN PATIENT YARELIS: No Prescriptions: Ketorolac [Toradol] 10 mg PO Q6H PRN #20 tab PRN Reason: Pain Metoclopramide HCl [Reglan] 5 mg PO TID PRN #15 tablet PRN Reason: Nausea Tamsulosin [Tamsulosin 24 Hr] 0.4 mg PO DAILY #7 cap.er Instructions: Constipation, Adult, Abdominal Pain, Adult, [id number] Referrals: Josie Mathur MD [Primary Care Provider] - Forms: ED Department Discharge Additional Instructions: Follow-up with your primary care provider tomorrow. Restart the Flomax. Take 1 tab daily. You may take the percocet as prescribed 1-2 tabs PO every 4 [address] machinery within 10 hours of taking percocet. Take the toradol as prescribed 1 tab PO every 6 hours. Drink a bottle of magnesium citrate. Also recommend miralax daily, these are available OTC. Reglan 1 tab PO every 6 hours prn nausea. Make sure you are drinking plenty of fluids. Drink about half your body weight and ounces of fluids every day. Please return to the ER if your symptoms change or worsen.
--- NOTE | 2018-07-08 14:34 | CR ---
Abdomen: Supine view of the abdomen was obtained. Comparison: No previous study. Bowel gas pattern is normal. Surgical clips are seen from prior cholecystectomy. Calcification is noted within the right pelvis most likely due to phlebolith. Bony structures appear within normal limits. Impression: 1. Incidental findings. Nothing acute is suspected on supine abdominal x-ray. Diagnostic code #2
== END 2018-07-08 13:54 | disposition home or self-care (01) ==
LOC: JD.ED 10:41
DX: K59.00 Constipation, unspecified (principal); E11.22 Type 2 diabetes mellitus with diabetic chronic kidney disease; N18.9 Chronic kidney disease, unspecified; E66.9 Obesity, unspecified; Z87.891 Personal history of nicotine dependence; Z88.8 Allergy status to other drugs, medicaments and biological substances
CPT/HCPCS: 36415; 74018; 80053; 81001; 83690; 85007; 85027; 86140; 96361; 96372; 96374; 96375; 99284; J0500; J1885; J2405; J7040; J7050

== ENCOUNTER 2018-10-16 11:09 | Emergency (ER) | payer MEDICARE, MEDICAID ==
[2018-10-16] MEDS ORDERED: Lactated Ringers 1,000 ML IV ONE ×2 (12:02→13:30)
[2018-10-16] MEDS ORDERED: Sodium Chloride 0.9% 10 ML Syringe FLUSH PRN (12:05)
[2018-10-16] MEDS ORDERED: Doxycycline 100 MG in Sodium Chloride 0.9% 100 ML IV ONE (12:06)
--- NOTE | 2018-10-16 12:10 | EDM.PDOC ---
ED HPI GENERAL MEDICAL PROBLEM - General Chief Complaint: Diabetic Complaint Stated Complaint: HIGH BLOOD SUGAR AN INFECTIONS Time Seen by Provider: 10/16/18 11:56 Source of Information: Reports: Patient History Limitations: Reports: No Limitations - History of Present Illness INITIAL COMMENTS - FREE TEXT/NARRATIVE: 43-year-old female presents for several different complaints. Patient is a type II diabetic currentl Lantus and NovoLog. Reports her sugars have been high for the last 2 weeks. She states she's had sugars in the 4 to 500s for the last 2 weeks. Today around 9 AM she took 25 units of Lantus and and 25 units of NovoLog. Upon arrival in the ER her sugars still elevated at 488. She denies any nausea, vomiting or abdominal pain. Reports chronic problems with migraines and headaches. She she has been drinking more but has not been urinating more than normal. She also reports chills and fatigue. Patient also complains of several areas of infection. Reports a cyst behind her left ear which has been ultrasounded and she is currently being treated with diclofenac for this area. She reports that she rosenberg area to her nose that is tender and weeping. Reports the area was weeping clear fluid last night. She states she now has an area behind her right ear that erupted last night and has a cyst in this area. She is also complaining of infection to her right toe. Patient contacted her primary care provider today who instructed her to come to the ER. Primary care provider is Dr. Mathur. Nose Pain Score (Numeric/FACES): 9 - Related Data Allergies Allergy/AdvReac Type Severity Reaction Status Date / Time atorvastatin [From Lipitor] Allergy Rash Verified 10/16/18 11:20 pseudoephedrine Allergy Rash Verified 10/16/18 11:20 [From Sudafed] komboglyze Allergy Vomiting Uncoded 10/16/18 11:20 Home Meds: Home Meds Dexlansoprazole [Dexilant] 60 mg PO BID 09/18/17 [History] Insulin Glarg,Human.Rec.Analog [LantUS Solostar] 25 units INJECT BID 09/18/17 [ History] Insulin Aspart [NovoLOG] 25 units SQ TID 03/15/18 [History] Diclofenac Sodium [Voltaren] 75 mg PO BIDMEALS 10/16/18 [History] Doxycycline [Vibramycin] 100 mg PO BID #20 cap 10/16/18 [Rx] Rizatriptan Benzoate [Rizatriptan] 10 mg PO ASDIRECTED PRN 10/16/18 [History] Past Medical History HEENT History: Reports: Impaired Vision Cardiovascular History: Reports: High Cholesterol, Hypertension Respiratory History: Reports: PE Gastrointestinal History: Reports: GERD Other Gastrointestinal History: Cheng esophagus Genitourinary History: Reports: Chronic Renal Insuffiency, Renal Calculus, Other (See Below) Other Genitourinary History: lithotripsy 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: Neurological History: Reports: Migraines Psychiatric History: Reports: Bipolar Other Psychiatric History: manic depression Endocrine/Metabolic History: Reports: Diabetes, Type II, Obesity/BMI 30+ Hematologic History: Reports: Bleeding Disorder Other Hematologic History: factor 5 liden - Infectious Disease History Infectious Disease History: Reports: Chicken Pox, MRSA Other Infectious Disease History: MRSA after hysteretomy - Past Surgical History HEENT Surgical History: Reports: Oral Surgery, Tonsillectomy GI Surgical History: Reports: Cholecystectomy, Hernia Repair/Other Female Surgical History: Reports: Section, Cervical Cryotherapy, Hysterectomy Musculoskeletal Surgical History: Reports: Shoulder Surgery, Other (See Below) Social & Family History - Family History Family Medical History: Noncontributory - Tobacco Use Smoking Status *Q: Current Every Day Smoker Years of Tobacco use: 25 Packs/Tins Daily: 1 - Caffeine Use Caffeine Use: Reports: Coffee - Recreational Drug Use Recreational Drug Use: No - Living Situation & Occupation Living situation: Reports: Single, with Family (Daughter) 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 Denies: Fever Endocrine: Reports: Fatigue, High Glucose, Polydypsia. Denies: Polyuria GI/Abdominal: Denies: Abdominal Pain, Nausea, Vomiting Skin: Reports: Wound (sores to the nose and right toe), Lumps (behind the bilteral ears) Neurological: Reports: Headache (chronic, no change) Course - Vital Signs Last Recorded V/S: Last Vital Signs Temp 98.3 F 10/16/18 11:30 Pulse 113 H 10/16/18 11:30 Resp 16 10/16/18 11:30 BP 170/107 H 10/16/18 11:30 Pulse Ox 99 10/16/18 11:30 - Orders/Labs/Meds Orders: Active Orders 24 hr Category Date Time Status Peripheral IV Care [RC] . DIRECTED Care 10/16/18 12:05 Active CULTURE BLOOD [BC] Stat Lab 10/16/18 12:17 Received CULTURE BLOOD [BC] Stat Lab 10/16/18 12:27 Received Sodium Chloride 0.9% [Saline Flush] Med 10/16/18 12:05 Active 10 ml FLUSH ASDIRECTED PRN Blood Culture x2 Reflex Set [OM.PC] Stat Oth 10/16/18 12:02 Ordered Peripheral IV Insertion Adult [OM.PC] Routine Oth 10/16/18 12:05 Ordered Medication Orders Sodium Chloride (Saline Flush) 10 ml FLUSH ASDIRECTED PRN PRN Reason: Keep Vein Open Last Admin: 10/16/18 12:47 Dose: 10 ml Labs: Laboratory Tests 10/16/18 10/16/18 10/16/18 Range/Units 12:02 12:10 12:17 WBC 7.97 (3.98-10.04) K/mm3 RBC 5.02 (3.98-5.22) M/mm3 Hgb 13.3 (11.2-15.7) gm/L Hct 39.6 (34.1-44.9) % MCV 78.9 L (79.4-94.8) fl MCH 26.5 (25.6-32.2) pg MCHC 33.6 (32.2-35.5) g/dl RDW Std Deviation 38.1 (36.4-46.3) fL Plt Count 298 (182-369) K/mm3 MPV 10.3 (9.4-12.3) fl Neutrophils % (Manual) 58 (40-60) % Band Neutrophils % 0 (0-10) % Lymphocytes % (Manual) 36 (20-40) % Atypical Lymphs % 0 % Monocytes % (Manual) 3 (2-10) % Eosinophils % (Manual) 3 (0.7-5.8) % Basophils % (Manual) 0 L (0.1-1.2) Platelet Estimate Adequate RBC Morph Comment Normal Puncture Site Rt radial ABG pH 7.36 (7.35-7.45) ABG pCO2 42.1 (35.0-45.0) mmHg ABG pO2 80.0 (80.0-100.0) mmHg ABG HCO3 23.4 (22.0-26.0) meq/L ABG O2 Saturation 93.7 L (96.0-97.0) % ABG Base Excess -1.4 (-2-2.0) Fran Test Positive O2 Delivery Device Room air FiO2 0.00 L (21.00-100.00) % Sodium (136-145) mEq/L Potassium (3.5-5.1) mEq/L Chloride (98-107) mEq/L Carbon Dioxide (21-32) mEq/L Anion Gap (5-15) BUN (7-18) mg/dL Creatinine (0.55-1.02) mg/dL Est Cr Clr Drug Dosing mL/min Estimated GFR (MDRD) (>60) mL/min BUN/Creatinine Ratio (14-18) Glucose (74-106) mg/dL Serum Osmolality (280-300) mosm/kg Lactic Acid (0.4-2.0) mmol/L Calcium (8.5-10.1) mg/dL Total Bilirubin (0.2-1.0) mg/dL AST (15-37) U/L ALT (14-59) U/L Alkaline Phosphatase (46-116) U/L C-Reactive Protein (<1.0) mg/dL Total Protein (6.4-8.2) g/dl Albumin (3.4-5.0) g/dl Globulin gm/dL Albumin/Globulin Ratio (1-2) Urine Color Yellow (Yellow) Urine Appearance Clear (Clear) Urine pH 6.0 (5.0-8.0) Ur Specific [place] 1.015 (1.005-1.030) Urine Protein Negative (Negative) Urine Glucose (UA) 2+ H (Negative) Urine Ketones Negative (Negative) Urine Occult Blood Negative (Negative) Urine Nitrite Negative (Negative) Urine Bilirubin Negative (Negative) Urine Urobilinogen 0.2 (0.2-1.0) Ur Leukocyte Esterase Negative (Negative) Urine RBC 0-5 (0-5) /hpf Urine WBC 0-5 (0-5) /hpf Ur Epithelial Cells 0-5 (0-5) /hpf Urine Bacteria Not seen (FEW) /hpf Urine Mucus Not seen (FEW) /hpf Ketones (0.0-0.3) mM 10/16/18 10/16/18 10/16/18 Range/Units 12:17 12:17 12:17 WBC (3.98-10.04) K/mm3 RBC (3.98-5.22) M/mm3 Hgb (11.2-15.7) gm/L Hct (34.1-44.9) % MCV (79.4-94.8) fl MCH (25.6-32.2) pg MCHC (32.2-35.5) g/dl RDW Std Deviation (36.4-46.3) fL Plt Count (182-369) K/mm3 MPV (9.4-12.3) fl Neutrophils % (Manual) (40-60) % Band Neutrophils % (0-10) % Lymphocytes % (Manual) (20-40) % Atypical Lymphs % % Monocytes % (Manual) (2-10) % Eosinophils % (Manual) (0.7-5.8) % Basophils % (Manual) (0.1-1.2) Platelet Estimate RBC Morph Comment Puncture Site ABG pH (7.35-7.45) ABG pCO2 (35.0-45.0) mmHg ABG pO2 (80.0-100.0) mmHg ABG HCO3 (22.0-26.0) meq/L ABG O2 Saturation (96.0-97.0) % ABG Base Excess (-2-2.0) Fran Test O2 Delivery Device FiO2 (21.00-100.00) % Sodium 135 L (136-145) mEq/L Potassium 4.4 (3.5-5.1) mEq/L Chloride 99 (98-107) mEq/L Carbon Dioxide 24 (21-32) mEq/L Anion Gap 16.4 H (5-15) BUN 12 (7-18) mg/dL Creatinine 0.9 (0.55-1.02) mg/dL Est Cr Clr Drug Dosing 84.23 mL/min Estimated GFR (MDRD) > 60 (>60) mL/min BUN/Creatinine Ratio 13.3 L (14-18) Glucose 461 H (74-106) mg/dL Serum Osmolality 303 H (280-300) mosm/kg Lactic Acid 2.0 (0.4-2.0) mmol/L Calcium 9.0 (8.5-10.1) mg/dL Total Bilirubin 0.3 (0.2-1.0) mg/dL AST 13 L (15-37) U/L ALT 16 (14-59) U/L Alkaline Phosphatase 135 H (46-116) U/L C-Reactive Protein 1.1 H* (<1.0) mg/dL Total Protein 7.3 (6.4-8.2) g/dl Albumin 3.3 L (3.4-5.0) g/dl Globulin 4.0 gm/dL Albumin/Globulin Ratio 0.8 L (1-2) Urine Color (Yellow) Urine Appearance (Clear) Urine pH (5.0-8.0) Ur Specific [place] (1.005-1.030) Urine Protein (Negative) Urine Glucose (UA) (Negative) Urine Ketones (Negative) Urine Occult Blood (Negative) Urine Nitrite (Negative) Urine Bilirubin (Negative) Urine Urobilinogen (0.2-1.0) Ur Leukocyte Esterase (Negative) Urine RBC (0-5) /hpf Urine WBC (0-5) /hpf Ur Epithelial Cells (0-5) /hpf Urine Bacteria (FEW) /hpf Urine Mucus (FEW) /hpf Ketones 0.11 (0.0-0.3) mM Meds: Medications Generic Name Dose Route Start Last Admin Trade Name Aspen PRN Reason Stop Dose Admin Sodium Chloride 10 ml 10/16/18 12:05 10/16/18 12:47 Saline Flush FLUSH 10 ml ASDIRECTED PRN Administration Keep Vein Open Discontinued Medications Generic Name Dose Route Start Last Admin Trade Name Aspen PRN Reason Stop Dose Admin Lactated Ringer's 1,000 mls @ 999 mls/hr 10/16/18 12:02 10/16/18 12:42 Ringers, Lactated IV 10/16/18 13:02 999 mls/hr .BOLUS ONE Administration Doxycycline Hyclate 100 mg/ 100 mls @ 100 mls/hr 10/16/18 12:06 10/16/18 12: 42 Sodium Chloride IV 10/16/18 13:05 100 mls/hr ONETIME ONE Administration Lactated Ringer's 1,000 mls @ 999 mls/hr 10/16/18 13:30 10/16/18 14:54 Ringers, Lactated IV 10/16/18 14:30 999 mls/hr .BOLUS ONE Administration Insulin Human Regular 5 unit 10/16/18 13:30 10/16/18 13:48 Humulin R IV 10/16/18 13:31 5 units ONETIME ONE Administration - Re-Assessments/Exams Free Text/Narrative Re-Assessment/Exam: 10/16/18 15:37 Checked on the pain. She is appreciated worsening swelling to her hands and feet. She has had some mild puffiness to her hands and feet. States this has been going on several weeks and she has been self-medicating with her friends diuretic. I will give her a small dose of Lasix here in the ED today she is having the blood pressure like her to follow-up with her primary regarding this. Plan will be to discharge her home today and doxycycline. I reviewed the labs with her and her blood sugar is now down to 220. Departure - Departure Time of Disposition: 15:38 Disposition: Home, Self-Care 01 Condition: Good Clinical Impression: Cellulitis, Hyperglycemia - Discharge Information *PRESCRIPTION DRUG MONITORING PROGRAM REVIEWED*: No *COPY OF PRESCRIPTION DRUG MONITORING REPORT IN PATIENT YARELIS: No Prescriptions: Doxycycline [Vibramycin] 100 mg PO BID #20 cap Referrals: Josie Mathur MD [Primary Care Provider] - Forms: ED Department Discharge Additional Instructions: Use a warm compress to the infected areas. use 3 or 4 times a day for about 10- 15 minutes. take the doxycycline as prescribed. 1 Twice a day for 10 days. Make sure you're drinking plenty of fluids. Follow-up with primary care provider on Friday as planned. May take [id number] Tylenol or Motrin as needed for pain relief. Please return to the ER if your symptoms change or worsen. - My Orders Last 24 Hours: My Active Orders 10/16/18 12:02 Blood Culture x2 Reflex Set [OM.PC] Stat 10/16/18 12:05 Peripheral IV Care [RC] . DIRECTED Sodium Chloride 0.9% [Saline Flush] 10 ml FLUSH ASDIRECTED PRN Peripheral IV Insertion Adult [OM.PC] Routine 10/16/18 12:17 CULTURE BLOOD [BC] Stat 10/16/18 12:27 CULTURE BLOOD [BC] Stat - Assessment/Plan Last 24 Hours: My Active Orders 10/16/18 12:02 Blood Culture x2 Reflex Set [OM.PC] Stat 10/16/18 12:05 Peripheral IV Care [RC] . DIRECTED Sodium Chloride 0.9% [Saline Flush] 10 ml FLUSH ASDIRECTED PRN Peripheral IV Insertion Adult [OM.PC] Routine 10/16/18 12:17 CULTURE BLOOD [BC] Stat 10/16/18 12:27 CULTURE BLOOD [BC] Stat
[2018-10-16] MEDS ORDERED: Insulin Regular, Human 100 Units/ML 3 ML Vial IV ONE (13:30)
[2018-10-16] MEDS ORDERED: Furosemide 20 MG/2 ML VIAL IVPUSH ONE (15:36)
== END 2018-10-16 16:06 | disposition home or self-care (01) ==
LOC: JD.ED 11:09
DX: J34.0 Abscess, furuncle and carbuncle of nose (principal); L03.031 Cellulitis of right toe; H60.13 Cellulitis of external ear, bilateral; I12.9 Hypertensive chronic kidney disease with stage 1 through stage 4 chronic kidney disease, or unspecified chronic kidney disease; N18.9 Chronic kidney disease, unspecified; E66.9 Obesity, unspecified; F17.210 Nicotine dependence, cigarettes, uncomplicated; E11.22 Type 2 diabetes mellitus with diabetic chronic kidney disease; E11.65 Type 2 diabetes mellitus with hyperglycemia; Z88.8 Allergy status to other drugs, medicaments and biological substances; Z79.4 Long term (current) use of insulin
CPT/HCPCS: 36415; 36600; 80053; 81001; 82009; 82803; 83605; 83930; 85007; 85027; 86140; 87040; 96361; 96365; 96375; 99284; A9270; J1815; J3490; J7030; J7120

== ENCOUNTER 2019-02-21 18:50 | Emergency (ER) | payer MEDICARE, MEDICAID ==
[2019-02-21] MEDS ORDERED: Lidocaine 1% 10 ML MDV INJECT ONE (19:17)
--- NOTE | 2019-02-21 20:00 | EDM.PDOC ---
ED HPI GENERAL MEDICAL PROBLEM - General Chief Complaint: Laceration Stated Complaint: RIGHT ARM CUT ON GLASS Time Seen by Provider: 02/21/19 19:14 Source of Information: Reports: Patient History Limitations: Reports: No Limitations - History of Present Illness INITIAL COMMENTS - FREE TEXT/NARRATIVE: The patient presents with a laceration to her right forearm. She was helping someone remove some parts from an old car and she cut her right forearm on some glass. She has a 5cm abrasion to the right forearm with the last part of that opening up to a laceration that is 1.5cm. Her tetanus is up to date. Onset: Sudden Duration: Minutes: Location: Reports: Upper Extremity, Right (Forearm) Quality: Reports: Sharp Severity: Mild Improves with: Reports: None Worsens with: Reports: None Associated Symptoms: Reports: No Other Symptoms - Related Data Allergies Allergy/AdvReac Type Severity Reaction Status Date / Time atorvastatin [From Lipitor] Allergy Rash Verified 02/21/19 18:57 pseudoephedrine Allergy Rash Verified 02/21/19 18:57 [From Sudafed] komboglyze Allergy Vomiting Uncoded 02/21/19 18:57 Home Meds: Home Meds Dexlansoprazole [Dexilant] 60 mg PO BID 09/18/17 [History] Insulin Glarg,Human.Rec.Analog [LantUS Solostar] 25 units INJECT BID 09/18/17 [ History] Insulin Aspart [NovoLOG] 25 units SQ TID 03/15/18 [History] Past Medical History HEENT History: Reports: Impaired Vision Cardiovascular History: Reports: High Cholesterol, Hypertension Respiratory History: Reports: PE Gastrointestinal History: Reports: GERD Other Gastrointestinal History: Cheng esophagus Genitourinary History: Reports: Chronic Renal Insuffiency, Renal Calculus, Other (See Below) Other Genitourinary History: lithotripsy MEDICAL RECEPTION History: Reports: Neurological History: Reports: Migraines Psychiatric History: Reports: Bipolar Other Psychiatric History: manic depression Endocrine/Metabolic History: Reports: Diabetes, Type II, Obesity/BMI 30+, Other (See Below) Other Endocrine/Metabolic History: Reynauds Hematologic History: Reports: Bleeding Disorder Other Hematologic History: factor 5 liden Other Dermatologic History: Reynauds - Infectious Disease History Infectious Disease History: Reports: Chicken Pox, MRSA Other Infectious Disease History: MRSA after hysteretomy - Past Surgical History HEENT Surgical History: Reports: Oral Surgery, Tonsillectomy GI Surgical History: Reports: Cholecystectomy, Hernia Repair/Other Female Surgical History: Reports: Section, Cervical Cryotherapy, Hysterectomy Musculoskeletal Surgical History: Reports: Shoulder Surgery, Other (See Below) Social & Family History - Family History Family Medical History: Noncontributory - Tobacco Use Smoking Status *Q: Current Every Day Smoker Years of Tobacco use: 25 Packs/Tins Daily: 0.5 - Caffeine Use Caffeine Use: Reports: Coffee, Soda - Recreational Drug Use Recreational Drug Use: No - Living Situation & Occupation Living situation: Reports: Single, with Family (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) 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 GENERAL - Review of Systems Review Of Systems: See Below Constitutional: Reports: No Symptoms HEENT: Reports: No Symptoms Respiratory: Reports: No Symptoms Cardiovascular: Reports: No Symptoms Endocrine: Reports: No Symptoms GI/Abdominal: Reports: No Symptoms : Reports: No Symptoms Musculoskeletal: Reports: Other (Abrasion and laceration to the right forearm) ED EXAM, SKIN/RASH Exam: See Below Exam Limited By: No Limitations General Appearance: Alert, No Apparent Distress Ears: Normal External Exam Nose: Normal Inspection Head: Atraumatic, Normocephalic Neck: Normal Inspection Respiratory/Chest: No Respiratory Distress Extremities: Other (5cm abrasion to the right forearm with the last 1.5cm being a laceration) ED SKIN PROCEDURES - Laceration/Wound Repair Right Arm Lac/Wound length In cm: 1.5 Appearance: Subcutaneous, Linear Distal NVT: Neuro & Vascular Intact, No Tendon Injury Anesthetic Type: Local Local Anesthesia - Lidocaine (Xylocaine): 1% Plain Skin Prep: Saline Exploration/Debridement/Repair: Wound Explored, In a Bloodless Field, Explored to Base Closed with: Sutures Suture Size: 4-0 # of Sutures: 3 Suture Type: Nylon, Interrupted, Simple Tetanus Status Addressed: Yes Complications: No Course - Vital Signs Last Recorded V/S: Last Vital Signs Temp 98.0 F 02/21/19 18:59 Pulse 118 H 02/21/19 18:59 Resp 2 L 02/21/19 18:59 BP 187/121 H 02/21/19 18:59 Pulse Ox 100 02/21/19 18:59 - Orders/Labs/Meds Meds: Medications Discontinued Medications Generic Name Dose Route Start Last Admin Trade Name Aspen PRN Reason Stop Dose Admin Lidocaine HCl 10 ml 02/21/19 19:17 02/21/19 19:21 Xylocaine 1% INJECT 02/21/19 19:18 10 ml ONETIME ONE Administration - Re-Assessments/Exams Free Text/Narrative Re-Assessment/Exam: 02/21/19 19:58 I closed the laceration with 3 sutures. Departure - Departure Time of Disposition: 20:00 Disposition: Home, Self-Care 01 Condition: Good Clinical Impression: Abrasion forearm Qualifiers: Encounter type: initial encounter Laterality: right Qualified Code(s): S50.811A - Abrasion of right forearm, initial encounter Laceration of right forearm Qualifiers: Encounter type: initial encounter Qualified Code(s): S51.811A - Laceration without foreign body of right forearm, initial encounter - Discharge Information *PRESCRIPTION DRUG MONITORING PROGRAM REVIEWED*: Not Applicable *COPY OF PRESCRIPTION DRUG MONITORING REPORT IN PATIENT YARELIS: Not Applicable Referrals: PCP,None [Primary Care Provider] - Additional Instructions: Clean the wound with warm soapy water 2 times per day and apply antibiotic ointment after. Have the sutures removed in 7 to 10 days. Look for any signs of infection such as redness, swelling, pain or drainage. If you see any of these signs, please return or see your doctor. You may need some oral antibiotics.
== END 2019-02-21 20:10 | disposition home or self-care (01) ==
LOC: JD.ED 18:50
DX: S51.811A Laceration without foreign body of right forearm, initial encounter (principal); I12.9 Hypertensive chronic kidney disease with stage 1 through stage 4 chronic kidney disease, or unspecified chronic kidney disease; N18.9 Chronic kidney disease, unspecified; E11.22 Type 2 diabetes mellitus with diabetic chronic kidney disease; E66.9 Obesity, unspecified; K21.9 Gastro-esophageal reflux disease without esophagitis; Z98.890 Other specified postprocedural states; Z90.49 Acquired absence of other specified parts of digestive tract; Z90.710 Acquired absence of both cervix and uterus; Z79.4 Long term (current) use of insulin; Z88.8 Allergy status to other drugs, medicaments and biological substances; W25.XXXA Contact with sharp glass, initial encounter
CPT/HCPCS: 12001; 99282; J2001

== ENCOUNTER 2019-03-23 09:38 | Day surgery (SDC) | payer MEDICARE, MEDICAID ==
[~2019-03-23 09:38] MED LIST: Lactated Ringers 1,000 ML IV SCH; Lidocaine 1%/Sod Bicarbonate in NS 8.4% 1 ML Syringe IDERM PRN; Sodium Chloride 0.9% 10 ML Syringe FLUSH PRN
[2019-03-23] MEDS ORDERED: Midazolam 1 MG/ML 2 ML SDV ONE ×2 (10:05→10:06)
[2019-03-23] MEDS ORDERED: Propofol 200 MG/20 ML SDV ONE ×2 (10:05→11:33)
[2019-03-23] MEDS ORDERED: fentaNYL 100 MCG/2 ML SDV ONE (10:06)
--- NOTE | 2019-03-23 10:09 | PCM.PREANE ---
Preanesthetic Assessment - Anesthesia/Transfusion/Family Hx Anesthesia History: Prior Anesthesia Without Reaction Family History of Anesthesia Reaction: No Transfusion History: No Prior Transfusion(s) - Review of Systems General: No Symptoms Pulmonary: No Symptoms Cardiovascular: No Symptoms Gastrointestinal: No Symptoms Neurological: Numbness (raynauds), Tingling (raynauds) Other: Reports: Diabetes - Physical Assessment NPO Status Date: 03/22/19 NPO Status Time: 00:00 Pulse: 106 O2 Sat by Pulse Oximetry: 100 Respiratory Rate: 16 Blood Pressure: 154/105 Temperature: 36.3 C Height: 1.78 m Weight: 120.6 kg ASA Class: 3 Mental Status: Alert & Oriented x3 Dentition: Reports: Broken Tooth/Teeth (bottom), Caries Thyro-Mental Finger Breadths: 3 Mouth Opening Finger Breadths: 3 ROM/Head Extension: Full Lungs: Clear to Auscultation, Normal Respiratory Effort Cardiovascular: Regular Rate, Regular Rhythm - Lab Values: Laboratory Last Values POC Glucose 310 mg/dL (70-105) H 03/23/19 09:59 - Imaging/EKG Impressions: EKG SR rate 90 on chart - Allergies Allergies/Adverse Reactions: Allergies Allergy/AdvReac Type Severity Reaction Status Date / Time amlodipine [From Norvasc] Allergy Rash Verified 03/22/19 13:33 atorvastatin [From Lipitor] Allergy Rash Verified 03/22/19 13:33 metformin Allergy Diarrhea Verified 03/22/19 13:33 morphine Allergy Cannot Verified 03/22/19 13:33 Remember pseudoephedrine Allergy Anaphylactic Verified 03/22/19 13:33 [From Sudafed] Shock seasonal Allergy Other Uncoded 03/22/19 13:33 - Blood Blood Available: No Product(s) Available: None - Anesthesia Plan Pre-Op Medication Ordered: None - Acknowledgements Anesthesia Type Planned: MAC Pt an Appropriate Candidate for the Planned Anesthesia: Yes Alternatives and Risks of Anesthesia Discussed w Pt/Guardian: Yes Pt/Guardian Understands and Agrees with Anesthesia Plan: Yes PreAnesthesia Questionnaire HEENT History: Reports: Impaired Vision Cardiovascular History: Reports: High Cholesterol, Hypertension Respiratory History: Reports: Asthma, PE, Other (See Below) Other Respiratory History: snoring Gastrointestinal History: Reports: GERD Other Gastrointestinal History: Cheng esophagus, nausea Genitourinary History: Reports: Chronic Renal Insuffiency, Renal Calculus, Other (See Below) Other Genitourinary History: lithotripsy 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: Musculoskeletal History: Reports: Fibromyalgia, RA Neurological History: Reports: Migraines, Vertigo Psychiatric History: Reports: Bipolar Other Psychiatric History: manic depression Endocrine/Metabolic History: Reports: Diabetes, Type II, Obesity/BMI 30+, Other (See Below) Other Endocrine/Metabolic History: Reynauds Hematologic History: Reports: Bleeding Disorder Other Hematologic History: factor 5 liden Immunologic History: Reports: None Oncologic (Cancer) History: Reports: None Other Dermatologic History: Reynauds - Infectious Disease History Infectious Disease History: Reports: Chicken Pox, MRSA Other Infectious Disease History: MRSA after hysteretomy - Past Surgical History Head Surgeries/Procedures: Reports: None HEENT Surgical History: Reports: Myringotomy w Tube(s), Naso-Sinus Surgery, Oral Surgery, Tonsillectomy Other HEENT Surgeries/Procedures: 3 teeth removed and 3 teeth repaired Cardiovascular Surgical History: Reports: None Respiratory Surgical History: Reports: None GI Surgical History: Reports: Cholecystectomy, Hernia Repair/Other Female Surgical History: Reports: Section, Cervical Cryotherapy, Hysterectomy Other Female Surgeries/Procedures: partial hysterectomy Neurological Surgical History: Reports: None Musculoskeletal Surgical History: Reports: Shoulder Surgery, Other (See Below) Other Musculoskeletal Surgeries/Procedures:: achillies tendon repair on right Oncologic Surgical History: Reports: None - SUBSTANCE USE Smoking Status *Q: Current Every Day Smoker Tobacco Use Within Last Twelve Months: Cigarettes Second Hand Smoke Exposure: Yes Days Per Week of Alcohol Use: 0 Number of Drinks Per Day: 0 Total Drinks Per Week: 0 Recreational Drug Use History: No - HOME MEDS Home Medications: Home Meds Dexlansoprazole [Dexilant] 60 mg PO BID 09/18/17 [History] Insulin Glarg,Human.Rec.Analog [LantUS Solostar] 30 units SQ BID 09/18/17 [ History] Insulin Aspart [NovoLOG] 25 units SQ TID 03/15/18 [History] NIFEdipine [Procardia] 10 mg PO TID 03/22/19 [History] - CURRENT (IN HOUSE) MEDS Current Meds: Current Medications Lactated Ringer's (Ringers, Lactated) 1,000 mls @ 125 mls/hr IV ASDIRECTED KARIE Stop: 03/23/19 23:00 Lidocaine/Sodium Bicarbonate (Buffered Lidocaine 1% In Ns 8.4%) 0.25 ml IDERM ONETIME PRN PRN Reason: Prior to IV Start Stop: 03/23/19 18:00 Sodium Chloride (Saline Flush) 10 ml FLUSH ASDIRECTED PRN PRN Reason: Keep Vein Open Stop: 03/23/19 18:00
[2019-03-23] MEDS ORDERED: Labetalol 100 MG/20 ML MDV ONE (11:28)
--- NOTE | 2019-03-23 11:55 | PCM.POSTAN ---
POST ANESTHESIA ASSESSMENT - MENTAL STATUS Mental Status: Alert, Somnolent - RESPIRATORY Respiratory Status: Respiratory Rate WNL, Airway Patent, O2 Saturation Stable, Supplemental Oxygen - CARDIOVASCULAR CV Status: Pulse Rate WNL, Blood Pressure Stable - GASTROINTESTINAL GI Status: No Symptoms - POST OP HYDRATION Hydration Status: Adequate & Stable
--- NOTE | 2019-03-23 11:56 | PCM48HPAN ---
Post Anesthesia Note - EVALUATION WITHIN 48HRS OF ANESTHETIC Patient Participated in Evaluation: Yes Respiratory Function Stable: Yes Airway Patent: Yes Cardiovascular Function Stable: Yes Hydration Status Stable: Yes Pain Control Satisfactory: Yes Nausea and Vomiting Control Satisfactory: Yes Mental Status Recovered: Yes Pulse Rate: 106 Resp Rate: 16 Temperature: 36.3 C Blood Pressure: 154/105
--- NOTE | 2019-03-23 11:59 | PCM.OPNOTE ---
- General Post-Op/Procedure Note Date of Surgery/Procedure: 03/23/19 Operative Procedure(s): EGD and hemorrhoid banding Findings: 1. Cheng's esophagus 2. Sliding hiatal hernia 3. Gastritis 4. Gastric polyps 5. Internal hemorrhoids Pre Op Diagnosis: Cheng's esophagus and hemorrhoids Post-Op Diagnosis: Cheng's Esophagus with sliding hiatal hernia and hemorrhoids [place]est[place] [facility] [place] Surgeon: Tracey Birmingham Anesthesia Provider: Ihsan Rubio Pathology: 1. Gastric antrum 2. Cheng's Biopsies Fluid Replacement, Intraop: 600 Output, Urine Amount: 0 EBL in mLs: 0 Complications: None apparent Condition: Good
--- NOTE | 2019-03-23 12:02 | PCM.PRNOTE ---
- Free Text/Narrative Note: Operative Report Date of procedure: March 23, 2019 Preoperative diagnosis: Cheng's esophagus and hemorrhoids Postoperative diagnosis: Cheng's esophagus with sliding hiatal hernia and hemorrhoids Surgeon: Tracey Birmingham M.D. Procedure: EGD with hemorrhoid banding Anesthesia: MAC Anesthesiologist: Ihsan Rubio CRNA IV fluids: 600 mL Estimated blood loss: 0 mL Findings: 1. Cheng's esophagus 2. Sliding hiatal hernia 3. Gastritis 4. Gastric polyps 5. Internal hemorrhoids Specimens: 1. Gastric antrum 2. Cheng's biopsies Indication: The patient is a 43 -year-old lady who presented with complaints of painful hemorrhoids. The patient's main complaint was [the hemorrhoids, however , she has a history of Cheng's esophagus and was due for follow-up evaluation. In addition, the patient does have history of colon polyps, but her medical records could not be retrieved. The patient is refusing colonoscopy at this time, but would like to have banding for her hemorrhoids. The patient was consented for an EGD with hemorrhoid banding. Risk of bleeding and perforation were discussed. The patient's consent was obtained Description of the procedure: The patient was taken to the endoscopy suite and placed on hemodynamic monitoring. The nurse agency sales development associate induced MAC anesthesia. A bite block was placed. The patient was positioned in the left lateral decubitus position. A timeout was performed. The endoscope was gently placed into the mouth to the back of the pharynx and introduced into the esophagus. The scope was gently advanced under direct visualization down to the level of the lower esophageal sphincter. The stomach was then entered. Normal rugal folds were noted. The scope was advanced into the antrum. We noted gastritis with linear erythema in the antrum.. The pylorus was then entered and the first and second portion of the duodenum was inspected. There were no ulcerations or other abnormalities in the duodenum. The scope was then retroflexed in the cardia and fundus were investigated. There was a moderate amount of bile-stained fluid residual in the stomach. The scope was then withdrawn into the esophagus. We did note a sliding hiatal hernia. This was a small hernia. The GE junction was irregular, consistent with a known diagnosis of Cheng's esophagus. She had a tongues of salmon- colored mucosa extending approximately 2 cm. There was also an area of isolated gastric mucosa. Cheng's biopsies were taken using a cold biopsy forceps in 4 quadrants. The were sent for pathology. The scope was then withdrawn while inspecting the esophagus. There was no esophagitis. We then turned our attention to the hemorrhoid banding. An anoscope was lubricated and inserted into the anal canal. There were 2 prominent hemorrhoid cushions. Four hemorrhoid bands were inserted high into the anal canal on the hemorrhoid tissue. The procedure was terminated. the patient tolerated the procedure well without any evidence of complications. Tracey Birmingham MD General Surgery
[2019-03-23] MEDS ORDERED: Ketorolac 30 MG/ML SDV IVPUSH PRN (12:13)
== END 2019-03-23 12:54 | disposition home or self-care (01) ==
LOC: JD.SDS 09:38
PROVIDERS: ATTEND Surgery
DX: K22.70 Barrett's esophagus without dysplasia (principal); K44.9 Diaphragmatic hernia without obstruction or gangrene; K64.9 Unspecified hemorrhoids; E11.9 Type 2 diabetes mellitus without complications; J45.20 Mild intermittent asthma, uncomplicated; G43.909 Migraine, unspecified, not intractable, without status migrainosus; I10 Essential (primary) hypertension; E78.5 Hyperlipidemia, unspecified; D68.51 Activated protein C resistance; F17.210 Nicotine dependence, cigarettes, uncomplicated; Z79.4 Long term (current) use of insulin; Z88.5 Allergy status to narcotic agent; Z88.8 Allergy status to other drugs, medicaments and biological substances; Z79.01 Long term (current) use of anticoagulants; Z79.899 Other long term (current) drug therapy; Z98.890 Other specified postprocedural states; Z86.59 Personal history of other mental and behavioral disorders
CPT/HCPCS: 43239; 46221; 82962; J1885; J2250; J2704; J3010; J3490; J7120